=== PATIENT | female | born 1960 | race Caucasian/White ===

== ENCOUNTER → 2019-12-02 08:20 | Outpatient (BNVA) | payer MEDICAID, SELFPAY | PROVIDERS: Family Provider Family Medicine; PCP Family Medicine; Referring Provider Registered Nurse; Visit Provider Specialist | DX: M25.512 Pain in left shoulder (principal); M25.522 Pain in left elbow | CPT/HCPCS: 73030; 73080 ==

== ENCOUNTER → 2020-01-17 14:10 | Outpatient (BNVA) | payer MEDICAID, SELFPAY | PROVIDERS: Family Provider Family Medicine; PCP Registered Nurse; Visit Provider Nurse Practitioner Family | DX: I50.9 Heart failure, unspecified (principal); R01.1 Cardiac murmur, unspecified | CPT/HCPCS: 80048; 83880 ==

== ENCOUNTER 2020-01-18 09:26 | Emergency (ER) | payer MEDICAID, SELFPAY ==
[2020-01-18 09:28] VITALS: BP 122/64; PULSE 78; RESP 16; TEMP 36.5; O2SAT 95; BMI 38.4
--- NOTE | 2020-01-18 09:44 | CTR_ITS ---
PROCEDURE INFORMATION: Exam: CT Abdomen And Pelvis With Contrast Exam date and time: 01/18/2020 10:08 AM Age: 59 years old Clinical indication: Prior surgery; Surgery date: 6+ months; Surgery type: Breast left; Patient HX: Bloating post op colonscopy. HX of cervical, cervical, uterine cancer; Additional info: Bloating post colonoscopy TECHNIQUE: Imaging protocol: Computed tomography of the abdomen and pelvis with intravenous contrast. Total DLP: 1326.91 mGy-cm Radiation optimization: All CT scans at this facility use at least one of these dose optimization techniques: automated exposure control; mA and/or kV adjustment per patient size (includes targeted exams where dose is matched to clinical indication); or iterative reconstruction. Contrast material: OMNIPAQUE; Contrast volume: 95 ml; Contrast route: IV; COMPARISON: CT abdomen pelvis w con* [id number] 07/21/2019 5:15 PM FINDINGS: Lungs: Interstitial prominence and trace dependent airspace disease. Liver: Multiple hepatic cysts, the largest measuring 2.4 cm. Gallbladder and bile ducts: No cholelithiasis or biliary ductal dilatation. Pancreas: No pancreatic mass or ductal dilatation. Spleen: No splenomegaly. Adrenals: Unremarkable adrenals. Kidneys and ureters: 7 mm left renal cyst. 1 mm nonobstructing left renal calculus. Stomach and bowel: Mild wall thickening in the nondistended rectosigmoid and right colon. Prominent stool and diverticula, without pericolonic inflammation. Wall thickening in the nondistended stomach. No significant small bowel dilatation. Appendix: No acute appendicitis. Intraperitoneal space: No significant free fluid. Vasculature: Normal caliber of the abdominal aorta. Vascular calcification. Lymph nodes: No pathologically enlarged lymph nodes. Bladder: Unremarkable as visualized. Reproductive: Punctate left adnexal calcification. Bones/joints: Transitional vertebra at the lumbosacral junction. Marginal osteophytes. Soft tissues: Soft tissue calcification about the proximal right femur. CT/CT abdomen pelvis w con* [id number] IMPRESSION: 1. Mild wall thickening in the nondistended rectosigmoid and right colon. 2. Prominent stool and diverticula, without pericolonic inflammation. 3. Wall thickening in the nondistended stomach. 4. Additional findings as described above. Radiation Dose CTDIVOL = (mGy): DLP = 1326.91 (mGy-cm)
--- NOTE | 2020-01-18 09:44 | ECG_ITS ---
Measurements Intervals [place] Rate: 80 P: 39 HI: 203 QRS: 42 QRSD: 100 T: 16 QT: 399 QTc: 461 SINUS RHYTHM MODERATE T-WAVE ABNORMALITY, CONSIDER ANTEROLATERAL ISCHEMIA Compared to ECG 03/31/2019 10:59:16 No significant changes Electronically Signed On 01-18-2020 13:20:31 [employer]OW REPAIRER [employer] by Jennifer Jaeger M.D. [email or web address]
--- NOTE | 2020-01-18 09:45 | ED_ITS ---
HPI - Chest Pain General: Chief Complaint: Chest Pain Stated Complaint: CP Time Seen by Provider: 01/18/20 09:36 History of Present Illness: HPI narrative: Patient complains about pain in her left upper chest hurts with palpation range of motion movement has a cardiac history was seen yesterday by [facility] patient denies any shortness of breath presently did take nitro with relief yesterday patient also complains about abdominal swelling MD complaint: chest discomfort Pertinent past history: coronary artery disease Onset (ago): day(s) Timing of current episode: episodic Prior episodes: Yes Pain location: left chest Pain radiation: none Severity: mild Quality: aching Relieving factors: nothing Exacerbating factors: movement Associated symptoms: Deny abdominal pain, dyspnea, fever(s) or palpitations Review of Systems Const: Denies: fever, chills or body aches Eyes: Denies: change in vision or blurry vision ENMT: Denies: throat pain or nasal congestion Card: Reports: other (Chest pain left upper chest area); Denies: palpitations Resp: Denies: shortness of breath GI: Reports: bloating; Denies: abdominal pain Musc: Denies: extremity pain Skin/Breast: Denies: rash Neuro: Denies: headache Psych: Denies: anxiety or depression Derrek/Lymph: Denies: easy bruising PFSH ED PFSH: Social History Smoking and tobacco status: current every day smoker cigarettes Packs smoked per day: 0.5 Alcohol intake: former Physical Exam Const: COMMON NORMALS: no apparent distress, average body habitus and oriented x3 HENMT: COMMON NORMALS: normocephalic HEAD & SCALP: normal to inspection and normocephalic FACE & SINUS: normal facial exam Eye: COMMON NORMALS: conjunctivae normal GENERAL EYE: normal appearance of both eyes CONJUNCTIVA: Yes conjunctivae normal Neck/C-Spine: COMMON NORMALS: no JVD Chest: COMMONS NORMALS: inspection of chest normal Resp: COMMON NORMALS: normal respiratory effort and clear to auscultation bilaterally AUSCULTATION: clear to auscultation bilaterally Cardio: COMMON NORMALS: no JVD, regular rate and regular rhythm RATE: regular rate RHYTHM: regular rhythm PERIPHERAL PULSES: other (Tenderness to the left upper chest with palpation and with range of motion the shoulder) GI: COMMON NORMALS: normal to inspection, nondistended, normoactive bowel sounds Extremity: COMMON NORMALS: normal to inspection and full ROM Neuro: COMMON NORMALS: oriented x3 Course Vital Signs: Vital signs: Vital Signs Temperature 97.7 F 01/18/20 09:28 Pulse Rate 80 01/18/20 12:07 Respiratory Rate 15 01/18/20 12:07 Blood Pressure 136/85 01/18/20 12:07 Pulse Oximetry 93 01/18/20 12:07 MDM - Chest Pain MDM Narrative: Medical decision making narrative: Discussed case with Dr. Lobato Heart score is 3 Lab Data: Labs: Lab Results 01/18/20 01/18/20 01/18/20 Range/Units 09:50 09:50 09:50 WBC 5.1 (4.0-10.0) 10^3/ uL RBC 4.50 (4.1-5.3) 10^6/u L Hgb 13.2 (11.5-15.3) g/dL Hct 40.9 (37.0-47.0) % MCV 90.9 (81-99) fL MCH 29.3 (28.0-34.0) pg MCHC 32.3 (30.0-36.0) g/dL RDW 14.6 (12.1-15.1) % Plt Count 208 (130-400) 10^3/c mm MPV 9.9 (7.4-10.4) fL Neut % (Auto) 63.3 % Lymph % (Auto) 27.5 % [place] % (Auto) 7.2 % Eos % (Auto) 1.0 % Baso % (Auto) 0.8 % Neut # (Auto) 3.2 (1.8-7.7) 10^3/u L Lymph # (Auto) 1.4 (0.8-4.8) 10^3/u L [place] # (Auto) 0.4 (0.2-0.9) 10^3/u L Eos # (Auto) 0.1 (0.0-0.8) 10^3/u L Baso # (Auto) 0.0 (0.0-0.1) 10^3/u L Nucleated RBC % (a uto) 0 % Nucleated RBCs # 0.0 /100WBC Sodium 140 (136-145) mmol/L Potassium 3.6 (3.5-5.1) mmol/L Chloride 102 (98-107) mmol/L Carbon Dioxide 27 (22-29) mmol/L Anion Gap 14.6 (5-19) BUN 5 L (6-20) mg/dL Creatinine 0.6 (0.5-0.9) mg/dL GFR Calculation 103.0 (90-130) mL/min Glucose 116 H (65-115) mg/dL Calcium 9.6 (8.5-10.5) mg/dL Total Bilirubin 0.5 (0.15-1.2) mg/dL AST 18 (0-32) U/L ALT 16 (0-33) U/L Alkaline Phosphata se 122 H (35-105) IU/L Troponin T Baselin e 6 (0-10) ng/mL NT-Pro-B Natriuret Pep 158 H (0-125) pg/mL Total Protein 6.9 (6.6-8.7) g/dL Albumin 3.8 (3.5-5.2) g/dL Globulin 3.1 (1.3-4.6) g/dL EKG Data^: EKG 1: EKG interpretation date: 01/18/20 EKG interpretation time: 09:45 Interpretation: NSR, T wave changes [id number] Discharge Plan Discharge Patient Disposition: Home, Self-Care Clinical Impression: Atypical chest pain, Costochondritis Condition: Stable Prescriptions: New hydrocodone-acetaminophen 5-325 mg tablet 1 tab PO Q6H PRN (Reason: pain) Qty: 10 RF: 0 No Action anastrozole [Arimidex] 1 mg tablet 1 mg PO QDAY RF: 0 (DME) Compact Compressor Nebulizer Misc See Rx Instructions .ROUTE .MEDSUPPLY Qty: 1 RF: 0 albuterol sulfate 90 mcg/actuation aerosol powdr breath activated 1 inh INHALATION ONCE RF: 0 folic acid 400 mcg tablet 0.4 mg PO QDAY RF: 0 ondansetron HCl [Zofran] 4 mg tablet 4 mg PO Q6H RF: 0 sodium chloride [[place] Nasal] 0.65 % aerosol,spray 1 spray INTRANASAL ONCE RF: 0 citalopram [Celexa] 40 mg tablet 40 mg PO QDAY RF: 0 atorvastatin [Lipitor] 80 mg tablet 80 mg PO QDAY RF: 0 verapamil [Verelan] 120 mg capsule,ext rel. pellets 24 hr 120 mg PO QAM RF: 0 furosemide [Lasix] 20 mg tablet 10 mg PO QAM RF: 0 levetiracetam [Keppra] 500 mg tablet 500 mg PO BID RF: 0 amitriptyline 50 mg tablet 50 mg PO QDAY RF: 0 loratadine [Claritin Liqui-Gel] 10 mg capsule 10 mg PO QDAY RF: 0 potassium chloride [Klor-Con M20] 20 mEq tablet,ER particles/crystals 20 meq PO QDAY RF: 0 trazodone 100 mg tablet 100 mg PO QDAY RF: 0 aspirin 81 mg tablet,delayed release (DR/EC) 81 mg PO QDAY RF: 0 gabapentin 300 mg capsule 400 mg PO TID RF: 0 promethazine 25 mg tablet 25 mg PO Q6H PRNRF: 0 omeprazole 20 mg capsule,delayed release(DR/EC) 20 mg PO BID RF: 0 isosorbide mononitrate 30 mg tablet extended release 24 hr 30 mg PO BID RF: 0 cholecalciferol (vitamin D3) 1,250 mcg (50,000 unit) capsule 50,000 unit PO .monthly RF: 0 furosemide 40 mg tablet 40 mg PO DAILY Qty: 30 RF: 2 potassium chloride [Klor-Con M20] 20 mEq tablet,ER particles/crystals 20 meq PO BID Qty: 30 RF: 1 Discharge Orders: Discharge Order (Routine); Ordered 01/18/20 Ordered By: Kory Stein Referrals: Farhana Anand DO [Family Provider] - Sravani Paul [Primary Care Provider] - Discharge Diet: Usual diet Discharge Activity: Increase activity as tolerated Patient Instructions: Constipation (ED), Costochondritis (ED) Activity Restrictions/Additional Instructions: Follow-up with medical provider as directed. Take medications as prescribed. Return to the ER or your medical provider if condition worsens. Please read and understand discharge instructions. If any questions ask please. Increase laxative and fiber in the diet drink plenty fluids get plenty of exercise. Discharge Date/Time: 01/18/20 12:07 Coding Level of Care Code ED Communications Equipment Supervisor for Yari Purdy
[2020-01-18 09:57] LABS: Basophils % 0.8 %; Eosinophils # 0.1 10^3/uL (0.0-0.8); Hematocrit 40.9 % (37.0-47.0); Hemoglobin 13.2 g/dL (11.5-15.3); Lymphocytes # 1.4 10^3/uL (0.8-4.8); Lymphocytes % 27.5 %; Mean Corpuscular HGB Conc 32.3 g/dL (30.0-36.0); Mean Corpuscular Hemoglobin 29.3 pg (28.0-34.0); Mean Corpuscular Volume 90.9 fL (81-99); Mean Platelet Volume 9.9 fL (7.4-10.4); Monocytes # 0.4 10^3/uL (0.2-0.9); Monocytes % 7.2 %; Neutrophils # 3.2 10^3/uL (1.8-7.7); Neutrophils % 63.3 %; Nucleated Red Blood Cells % 0 %; Platelet Count 208 10^3/cmm (130-400); Red Cell Distribution Width 14.6 % (12.1-15.1); White Blood Count 5.1 10^3/uL (4.0-10.0)
[2020-01-18 10:15] LABS: Troponin(5th) Baseline 6 ng/mL (0-10)
--- NOTE | 2020-01-18 10:20 | PC.NURSE ---
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
--- NOTE | 2020-01-18 10:22 | PC.NURSE ---
PHYSICAL ASSESSMENT Chief Complaint: Chest Pain, Cough, Fever GENERAL / NEURO / PSYCH: Alert. Oriented x 4 ARIANNE COMA SCORE: 15- HEENT: No facial asymmetry noted. Mucous membranes are pink. RESPIRATORY: Not in respiratory distress. Chest tender, worse with palpation and coughing. Breath sounds in normal limits. CVS: Sinus Rhythm Capillary refill less than 2 seconds. Pulses within normal limits. GI / : Abdomen soft and nontender and normal bowel sounds. SKIN: Skin intact. Skin is warm and dry. Normal skin turgor. -
[2020-01-18 10:24] LABS: Alanine Aminotransferase 16 U/L (0-33); Albumin Level 3.8 g/dL (3.5-5.2); Alkaline Phosphatase 122 IU/L (35-105); Anion Gap 14.6 (5-19); Aspartate Amino Transferase 18 U/L (0-32); Blood Urea Nitrogen 5 mg/dL (6-20); Calcium 9.6 mg/dL (8.5-10.5); Carbon Dioxide 27 mmol/L (22-29); Chloride 102 mmol/L (98-107); Globulin 3.1 g/dL (1.3-4.6); Glucose 116 mg/dL (65-115); NT Pro B Type Natriuretic Pept 158 pg/mL (0-125); Potassium 3.6 mmol/L (3.5-5.1); Sodium 140 mmol/L (136-145); Total Bilirubin 0.5 mg/dL (0.15-1.2); Total Protein 6.9 g/dL (6.6-8.7)
--- NOTE | 2020-01-18 10:56 | XR_ITS ---
WS: [id number] XR chest 1V portable [id number] REASON FOR EXAM: chest pain palpable FINDINGS: Comparisons were made to March 31, 2019. The heart and mediastinal interfaces are normal. Arteriosclerotic changes in the arch of the aorta ar e noted. The lung drummond are well-aerated there is no active processes seen. The hilum and apices are normal. XR/XR chest 1V portable [id number] IMPRESSION: No evidence of active cardiopulmonary disease. Arteriosclerotic changes in the arch of the aorta.
[2020-01-18] MEDS: iohexol 300 mg/mL 100 mL Btl IV (11:00)
[2020-01-18] MEDS: HYDROcodone-acetaminophen 5-325 mg Tablet 1 TAB PO (11:12)
--- NOTE | 2020-01-18 11:55 | PC.NURSE ---
Patient resting at this time. No needs.
[2020-01-18 12:07] VITALS: BP 136/85; PULSE 80; RESP 15; O2SAT 93
== END 2020-01-18 12:07 | disposition home or self-care (01) ==
PROVIDERS: Emergency Provider Nurse Practitioner Family; Family Provider Family Medicine; PCP Registered Nurse
DX: R07.89 Other chest pain (principal); M94.0 Chondrocostal junction syndrome [Tietze]; I25.10 Atherosclerotic heart disease of native coronary artery without angina pectoris; F17.210 Nicotine dependence, cigarettes, uncomplicated
CPT/HCPCS: 36415; 71045; 74177; 80053; 83880; 84484; 85025; 93005; 99281; 99284; Q9967

== ENCOUNTER 2020-01-28 09:12 | Outpatient (CLI) | payer MEDICAID, SELFPAY ==
--- NOTE | 2020-01-28 09:30 | USCV_ITS ---
[facility] Age: 59 Gender: F : 1960 Exam Date: 01/28/2020 09:33 Ordering Phys: Aliza Chang Technologist: Shandra Lynn [place] [facility] [place]: CHEST PAIN BP: / HR: 73 Rhythm: Sinus Technical Quality: Suboptimal MEASUREMENTS (Male / Female) Normal Values 2D ECHO LV Diastolic Diameter PLAX 4.6 cm 4.2 - 5.9 / 3.9 - 5.3 cm LV Systolic Diameter PLAX 3.4 cm LV Chamber Size 4.2 cm IVS Diastolic Thickness 0.9 cm 0.6 - 1.0 / 0.6 - 0.9 cm IVS Systolic Thickness 1.5 cm LVPW Diastolic Thickness 1.6 cm 0.6 - 1.0 / 0.6 - 0.9 cm LVPW Systolic Thickness 1.3 cm RV Chamber Size 3.0 cm LVOT Diameter 2.0 cm LV Ejection Fraction 2D Teich 51.9 % LV Ejection Fraction MOD 2C 71.4 % LV Ejection Fraction 2C AL 74.3 % LA Diameter 3.6 cm LA Width 2.7 cm LA Height 3.4 cm RA Width 3.2 cm RA Height 3.9 cm Aorta at Sinotubular Diameter 3.4 cm M-MODE LV Diastolic Diameter MM 6.0 cm 4.2 - 5.9 / 3.9 - 5.3 cm LV Systolic Diameter MM 4.7 cm LV Ejection Fraction MM Teich 43.8 % IVS Diastolic Thickness MM 0.8 cm 0.6 - 1.0 / 0.6 - 0.9 cm IVS Systolic Thickness MM 1.3 cm LVPW Diastolic Thickness MM 1.3 cm 0.6 - 1.0 / 0.6 - 0.9 cm LVPW Systolic Thickness MM 1.6 cm RV Diastolic Diameter MM 1.7 cm Aortic Annulus Diameter 3.5 cm LA Ao Ratio MM 1.0 MV E Point Septal Separation 1.3 cm DOPPLER AV Peak Velocity 158.0 cm/s LVOT Peak Velocity 109.0 cm/s AV Area Cont Eq vti 2.2 cm squared AV Area Cont Eq pk 2.2 cm squared MV Area PHT 5.0 cm squared Mitral E to A Ratio 0.7 MV E' Velocity 11.0 cm/s Mitral E to MV E' Ratio 8.1 Mitral E to LV E' Lateral Ratio 8.2 Mitral E to LV E' Septal Ratio 8.0 TR Peak Velocity 285.9 cm/s TR Peak Gradient 32.7 mmHg TR Mean Velocity 215.4 cm/s TR Mean Gradient 20.6 mmHg TR Velocity Time Integral 74.5 cm TV Peak E Velocity 71.0 cm/s Right Atrial Pressure 3.0 mmHg Pulmonary Artery Systolic Pressu 35.7 mmHg PV Peak Velocity 91.0 cm/s RV Acceleration Time 0.1 s RV Ejection Time 0.4 s RV AcT/ET 0.4 FINDINGS Left Ventricle Normal left ventricular size, systolic function and wall thickness, with no regional wall motion abnormalities. Left ventricular cavity not well visualized. Grade I/IV diastolic dysfunction (abnormal relaxation filling pattern), normal to mildly elevated filling pressures. Left ventricular ejection fraction is estimated at 60 %. Right Ventricle Normal right ventricular size and systolic function. Mild pulmonary hypertension, RVSP 35.7 mmHg. Right Atrium The right atrium is normal in size. Left Atrium The left atrium is normal in size. Mitral Valve Mitral valve not well visualized. Structurally normal mitral valve. Trace mitral valve regurgitation. Aortic Valve Aortic valve not well visualized. Structurally normal trileaflet aortic valve. No aortic valve stenosis. [id number] aortic valve regurgitation. Tricuspid Valve Tricuspid valve not well visualized. Mild tricuspid valve regurgitation. Pulmonic Valve Pulmonic valve not well visualized. Pericardium Normal pericardium without effusion. Aorta Normal ascending aorta dimension. CONCLUSIONS Normal left ventricular size, systolic function and wall thickness, with no regional wall motion abnormalities. Left ventricular cavity not well visualized. Grade I/IV diastolic dysfunction (abnormal relaxation filling pattern), normal to mildly elevated filling pressures. Left ventricular ejection fraction is estimated at 60 %. Normal right ventricular size and systolic function. Mild pulmonary hypertension, RVSP 35.7 mmHg. Mitral valve not well visualized. Structurally normal mitral valve. Trace mitral valve regurgitation. Aortic valve not well visualized. Structurally normal trileaflet aortic valve. No aortic valve stenosis. [id number] aortic valve regurgitation. There are no prior echocardiogram studies to compare. Dr. Fred Baldwin MD (Electronically Signed) Final Date: 28 January 2020 12:38 S
== END 2020-01-28 09:13 | disposition home or self-care (01) ==
LOC: US 09:12
PROVIDERS: Family Provider Registered Nurse; PCP Registered Nurse; Visit Provider Nurse Practitioner Family
DX: I08.3 Combined rheumatic disorders of mitral, aortic and tricuspid valves (principal); I50.9 Heart failure, unspecified; R01.1 Cardiac murmur, unspecified
CPT/HCPCS: 93306

== ENCOUNTER 2020-02-07 14:58 | Emergency (ER) | payer MEDICAID, SELFPAY ==
[2020-02-07 15:09] VITALS: BP 103/74; PULSE 100; RESP 18; TEMP 37; BMI 37.1
--- NOTE | 2020-02-07 15:16 | ED_ITS ---
Entered by Madeline Mcdonald, acting as scribe for Cesilia Cid MD Feb 07, 2020 14:58 HPI - Chest Pain General: Chief Complaint: Chest Pain Stated Complaint: Abd bloating/CHEST PAIN Time Seen by Provider: 02/07/20 15:10 Source: patient Mode of arrival: ambulatory Limitations: no limitations History of Present Illness: HPI narrative: 59 yo Female presents to ED with complaint of chest pain and abdominal bloating that has been going on for 3 and a half weeks. Pt states that her appointment at [facility] got messed up and she was told to come in to the ER to be seen. Pt states that her Lasix has been increased but she has not had any relief. complaint: chest pain Onset (ago): week(s) Timing of current episode: constant and still present Prior episodes: Yes Pain location: substernal Pain radiation: none Pain scale (0-10): 9 Relieving factors: nothing Exacerbating factors: other (coughing) Associated symptoms: Deny abdominal pain, dyspnea, fever(s), nausea or vomiting Treatment prior to arrival: none Review of Systems General: Reports: 10 or more systems reviewed and unremarkable except in HPI and below Const: Denies: fever or chills Eyes: Denies: change in vision ENMT: Denies: throat pain Card: Reports: chest pain Resp: Denies: shortness of breath GI: Reports: bloating; Denies: abdominal pain, nausea, vomiting or change in bowel habits : Denies: difficulty urinating Musc: Denies: muscle weakness Skin/Breast: Denies: rash Neuro: Denies: headache Psych: Denies: hopelessness or suicidal ideation Endo: Denies: excessive urination Derrek/Lymph: Denies: easy bruising or easy bleeding All/Imm: Denies: hives PFSH ED PFSH: Medical History COPD (chronic obstructive pulmonary disease) CVA (cerebrovascular accident) received TPA at [facility], 2018 History of drug abuse used methamphetamine, and alcohol Seizure disorder Sleep apnea Surgical History H/O tubal ligation S/P cataract surgery S/P left mastectomy Family History Grandfather CAD (coronary artery disease) Cancer Clotting disorder Family history of premature coronary artery disease Hyperlipidemia Hypertension Lung disease Grandmother CAD (coronary artery disease) Cancer Diabetes Family history of premature coronary artery disease Hyperlipidemia Hypertension Lung disease Family/Other CAD (coronary artery disease) Clotting disorder Diabetes Family history of premature coronary artery disease Hyperlipidemia Hypertension Lung disease Stroke Father CAD (coronary artery disease) Cancer Family history of premature coronary artery disease Mother CAD (coronary artery disease) Cancer Family history of premature coronary artery disease Lung disease Brother CAD (coronary artery disease) Cancer Denies family history of Dementia Psychiatric illness Chronic kidney disease (CKD) Suicide Anesthesia complication Bleeding disorder Social History Smoking and tobacco status: current every day smoker cigarettes Packs smoked per day: 0.5 Alcohol intake: former Physical Exam Const: COMMON NORMALS: no apparent distress, oriented x3, alert and well nourished HENMT: COMMON NORMALS: normocephalic and external nose normal HEAD & SCALP: normocephalic NOSE: external nose normal MOUTH: no trismus Eye: COMMON NORMALS: EOMs intact bilaterally and conjunctivae normal CONJUNCTIVA: Yes conjunctivae normal Neck/C-Spine: COMMON NORMALS: full ROM, no lymphadenopathy and supple CERVICAL SPINE: Yes cervical ROM normal Lymph: LYMPHATIC: no lymphadenopathy noted Resp: COMMON NORMALS: normal respiratory effort, no retractions, no use of accessory muscles and clear to auscultation bilaterally EFFORT & INSPECTION: Yes able to speak in complete sentences AUSCULTATION: clear to auscultation bilaterally Cardio: COMMON NORMALS: regular rate and regular rhythm RATE: regular rate RHYTHM: regular rhythm GI: COMMON NORMALS: soft to palpation, non-tender and no masses INSPECTION: Yes normal to inspection AUSCULTATION: Yes normoactive bowel sounds PALPATION: Yes soft, No guarding and No rigid Back/Pelvis: OTHER: Normal range of motion Extremity: GENERAL: Yes normal exam except as noted Neuro: COMMON NORMALS: oriented x3 and CN's II-XII intact bilaterally SENSORIUM/ORIENTATION: Yes alert SPEECH: speech normal Psych: COMMON NORMALS: mental status grossly normal Skin: COMMON NORMALS: no rashes or lesions noted GENERAL SKIN EXAM: no rashes or lesions noted Course Vital Signs: Vital signs: Vital Signs Temperature 98.6 F 02/07/20 15:09 Pulse Rate 100 03/23/20 15:09 Respiratory Rate 18 02/07/20 15:09 Blood Pressure 103/74 02/07/20 15:09 MDM - Chest Pain MDM Narrative: Medical decision making narrative: Discussed with nurse practitioner Ganga at the cardiology clinic by phone. She did speak with the patient on the phone and from what this patient told her she figured she would need lab and an assessment to make sure she was not fluid overloaded. BMP is improved from earlier this month patient has no respiratory distress lung exam is normal. Labs are within normal limits. She has had this chest pain and abdominal bloating for almost 4 weeks now and it is unchanged. No emergent medical condition found today that warrants further investigation in the hospital or ER at is time. Lab Data: Labs: Lab Results 02/07/20 02/07/20 02/07/20 Range/Units 15:34 15:34 15:34 WBC 8.6 (4.0-10.0) 10^3/ uL RBC 4.73 (4.1-5.3) 10^6/u L Hgb 14.2 (11.5-15.3) g/dL Hct 43.9 (37.0-47.0) % MCV 92.8 (81-99) fL MCH 30.0 (28.0-34.0) pg MCHC 32.3 (30.0-36.0) g/dL RDW 14.3 (12.1-15.1) % Plt Count 211 (130-400) 10^3/c mm MPV 10.2 (7.4-10.4) fL Neut % (Auto) 62.1 % Lymph % (Auto) 28.5 % Hettinger % (Auto) 7.8 % Eos % (Auto) 0.6 % Baso % (Auto) 0.8 % Neut # (Auto) 5.3 (1.8-7.7) 10^3/u L Lymph # (Auto) 2.5 (0.8-4.8) 10^3/u L [place] # (Auto) 0.7 (0.2-0.9) 10^3/u L Eos # (Auto) 0.1 (0.0-0.8) 10^3/u L Baso # (Auto) 0.1 (0.0-0.1) 10^3/u L Nucleated RBC % (a uto) 0 % Nucleated RBCs # 0.0 /100WBC Sodium 139 (136-145) mmol/L Potassium 3.6 (3.5-5.1) mmol/L Chloride 99 (98-107) mmol/L Carbon Dioxide 27 (22-29) mmol/L Anion Gap 16.6 (5-19) BUN 8 (6-20) mg/dL Creatinine 0.8 (0.5-0.9) mg/dL GFR Calculation 73.9 L (90-130) mL/min Glucose 106 (65-115) mg/dL Calculated Osmolal ity 284 L (285-295) mOsm/k g Calcium 9.6 (8.5-10.5) mg/dL Total Bilirubin 0.4 (0.15-1.2) mg/dL AST 17 (0-32) U/L ALT 17 (0-33) U/L Alkaline Phosphata se 124 H (35-105) IU/L Troponin T Baselin e 6 (0-10) ng/mL NT-Pro-B Natriuret Pep 27 (0-125) pg/mL Total Protein 7.0 (6.6-8.7) g/dL Albumin 3.9 (3.5-5.2) g/dL Globulin 3.1 (1.3-4.6) g/dL Lipase 30 (13-60) U/L Imaging Data^: CXR: Radiologist's impression: [place] [address] XRay Report Signed Patient: Coby Pierce MUnit #: [id number] : 2At#:[id number] Age/Sex: 59 / FADM Date: 02/07/20 Loc: ERRoom/Bed: Attending Dr: Ordering Provider/Ordering MD: Cesilia Cid MD Date of Service: 02/07/20 Procedure(s): XR chest 1V portable [id number] Accession Number(s): [id number] Report Number: [id number] WS: [id number] CHEST XRAY TECHNIQUE: Portable chest. CLINICAL INFORMATION: cp, abd pbloating COMPARISON: January 18, 2020 FINDINGS: Heart: Normal cardiac silhouette. Aortic calcification. Lungs: Lungs are clear. No consolidation or pleural effusion. Bones: Hypertrophic changes thoracic spine. XR/XR chest 1V portable [id number] IMPRESSION: No acute chest findings Dictated By:Inder Calderon MD Signed By:Inder Calderon MDSigned Date/Time:02/07/20 1607 DD/ 1554 EKG Data^: EKG 1: Attestation: I personally reviewed and interpreted this EKG as follows: EKG interpretation date: 02/07/20 EKG interpretation time: 15:32 Prior EKG tracings: not available for review Interpretation: Sinus rhythm rate 89 with artifact on the EKG nonspecific ST changes no acute ST elevation that would be consistent with a ST elevated [place]. Discharge Plan Discharge Patient Disposition: Home, Self-Care Clinical Impression: Chest pain Qualifiers: Chest pain type: unspecified Qualified Code(s): R07.9 - Chest pain, unspecified Condition: Stable Prescriptions: No Action anastrozole [Arimidex] 1 mg tablet 1 mg PO QDAY RF: 0 (DME) Compact Compressor Nebulizer Misc See Rx Instructions .ROUTE .MEDSUPPLY Qty: 1 RF: 0 albuterol sulfate 90 mcg/actuation aerosol powdr breath activated 1 inh INHALATION ONCE RF: 0 folic acid 400 mcg tablet 0.4 mg PO QDAY RF: 0 ondansetron HCl [Zofran] 4 mg tablet 4 mg PO Q6H RF: 0 sodium chloride [[place] Nasal] 0.65 % aerosol,spray 1 spray INTRANASAL ONCE RF: 0 citalopram [Celexa] 40 mg tablet 40 mg PO QDAY RF: 0 atorvastatin [Lipitor] 80 mg tablet 80 mg PO QDAY RF: 0 verapamil [Verelan] 120 mg capsule,ext rel. pellets 24 hr 120 mg PO QAM RF: 0 levetiracetam [Keppra] 500 mg tablet 500 mg PO BID RF: 0 amitriptyline 50 mg tablet 50 mg PO QDAY RF: 0 loratadine [Claritin Liqui-Gel] 10 mg capsule 10 mg PO QDAY RF: 0 trazodone 100 mg tablet 100 mg PO QDAY RF: 0 aspirin 81 mg tablet,delayed release (DR/EC) 81 mg PO QDAY RF: 0 gabapentin 300 mg capsule 700 mg PO TID RF: 0 promethazine 25 mg tablet 25 mg PO Q6H PRN (Reason: Nausea And Vomiting) RF: 0 omeprazole 20 mg capsule,delayed release(DR/EC) 20 mg PO BID RF: 0 cholecalciferol (vitamin D3) 1,250 mcg (50,000 unit) capsule 50,000 unit PO .monthly RF: 0 furosemide 40 mg tablet 40 mg PO DAILY Qty: 30 RF: 2 nitroglycerin 0.4 mg tablet, sublingual 0.4 mg SUBLINGUAL Q5M PRN (Reason: chest pain) Qty: 30 RF: 1 isosorbide mononitrate 30 mg tablet extended release 24 hr 30 mg PO BID Qty: 60 RF: 3 Calcium 500 500 mg calcium (1,250 mg) Tablet 500 mg PO DAILY RF: 0 Klor-Con M20 20 mEq tablet,ER particles/crystals 20 meq PO TID RF: 0 hydrocodone-acetaminophen 5-325 mg tablet 1 tab PO Q6H PRN (Reason: pain) Qty: 10 RF: 0 Referrals: Sravani Paul [Primary Care Provider] - Patient Instructions: Chest Pain (ED) Activity Restrictions/Additional Instructions: Follow-up with your primary care physicians as previously instructed. Coding Level of Care Code ED Senior Physical Therapist for Chg Fwd Exam Comprehensive The documentation recorded by the Harry rose Carmen, accurately reflects the service I personally performed and the decisions made by Jose Roberto chin Megan, MD Feb 07, 2020 14:58
--- NOTE | 2020-02-07 15:26 | XR_ITS ---
WS: [id number] CHEST XRAY TECHNIQUE: Portable chest. CLINICAL INFORMATION: cp, abd pbloating COMPARISON: January 18, 2020 FINDINGS: Heart: Normal cardiac silhouette. Aortic calcification. Lungs: Lungs are clear. No consolidation or pleural effusion. Bones: Hypertrophic changes thoracic spine. XR/XR chest 1V portable [id number] IMPRESSION: No acute chest findings
--- NOTE | 2020-02-07 15:26 | ECG_ITS ---
Measurements Intervals [place] Rate: 89 P: 47 GA: 190 QRS: 24 QRSD: 102 T: 50 QT: 388 QTc: 472 SINUS RHYTHM POSSIBLE LEFT ATRIAL ENLARGEMENT [-0.1mV P WAVE IN V1/V2] MODERATE T-WAVE ABNORMALITY, CONSIDER ANTEROLATERAL ISCHEMIA [-0.1+ mV T WAVE IN V3-V6]Compared to ECG 01/18/2020 09:33:45 No significant changes Electronically Signed On 02-07-2020 19:25:43 CDT by Aicha Saavedra M.D. [email or web address]
[2020-02-07 15:40] LABS: Basophils # 0.1 10^3/uL (0.0-0.1); Basophils % 0.8 %; Eosinophils # 0.1 10^3/uL (0.0-0.8); Eosinophils % 0.6 %; Hematocrit 43.9 % (37.0-47.0); Hemoglobin 14.2 g/dL (11.5-15.3); Lymphocytes # 2.5 10^3/uL (0.8-4.8); Lymphocytes % 28.5 %; Mean Corpuscular HGB Conc 32.3 g/dL (30.0-36.0); Mean Corpuscular Volume 92.8 fL (81-99); Mean Platelet Volume 10.2 fL (7.4-10.4); Monocytes # 0.7 10^3/uL (0.2-0.9); Monocytes % 7.8 %; Neutrophils # 5.3 10^3/uL (1.8-7.7); Neutrophils % 62.1 %; Nucleated Red Blood Cells % 0 %; Platelet Count 211 10^3/cmm (130-400); Red Blood Count 4.73 10^6/uL (4.1-5.3); Red Cell Distribution Width 14.3 % (12.1-15.1); White Blood Count 8.6 10^3/uL (4.0-10.0)
[2020-02-07 16:05] LABS: Troponin(5th) Baseline 6 ng/mL (0-10)
[2020-02-07 16:12] LABS: Alanine Aminotransferase 17 U/L (0-33); Albumin Level 3.9 g/dL (3.5-5.2); Alkaline Phosphatase 124 IU/L (35-105); Anion Gap 16.6 (5-19); Aspartate Amino Transferase 17 U/L (0-32); Blood Urea Nitrogen 8 mg/dL (6-20); Calcium 9.6 mg/dL (8.5-10.5); Carbon Dioxide 27 mmol/L (22-29); Chloride 99 mmol/L (98-107); Globulin 3.1 g/dL (1.3-4.6); Glomerular Filtration Rate 73.9 mL/min (90-130); Glucose 106 mg/dL (65-115); Lipase 30 U/L (13-60); NT Pro B Type Natriuretic Pept 27 pg/mL (0-125); Osmolality Calculated 284 mOsm/kg (285-295); Potassium 3.6 mmol/L (3.5-5.1); Sodium 139 mmol/L (136-145); Total Bilirubin 0.4 mg/dL (0.15-1.2)
[2020-02-07 17:04] VITALS: BP 115/64; PULSE 88; RESP 16; O2SAT 96
== END 2020-02-07 17:05 | disposition home or self-care (01) ==
PROVIDERS: Emergency Provider Emergency Medicine; Family Provider Registered Nurse; PCP Registered Nurse
DX: R07.9 Chest pain, unspecified (principal); J44.9 Chronic obstructive pulmonary disease, unspecified; F17.210 Nicotine dependence, cigarettes, uncomplicated; Z86.73 Personal history of transient ischemic attack (TIA), and cerebral infarction without residual deficits; Z82.49 Family history of ischemic heart disease and other diseases of the circulatory system
CPT/HCPCS: 12345; 36415; 71045; 80053; 83690; 83880; 84484; 85025; 93005; 99281; 99283

== ENCOUNTER 2020-02-24 09:41 | Outpatient (CLI) | payer MEDICAID, SELFPAY ==
--- NOTE | 2020-02-24 10:15 | US_ITS ---
WS: [id number] RIGHT UPPER QUADRANT ULTRASOUND HISTORY: Generalized abdominal pain with nausea and vomiting. COMPARISON: CT abdomen 01/18/2020 Liver: 13.9 cm in length. Normal size liver. Multiple hypoechoic nodules throughout the liver. These were seen on the recent CT and correlated with cysts. The largest near the paras hepatis measures 2.4 x 1.8 x 1.7 cm. Gallbladder: Normally distended gallbladder with no stones or wall thickening. CBD: 0.5 cm Pancreas: Completely obscured by bowel gas. Right kidney: 11.8 cm in length. Normal echogenicity with no mass or hydronephrosis. Aorta and IVC: Unremarkable. No ascites. US/US gall bladder [id number] IMPRESSION: 1. Negative gallbladder. 2. Hepatic cysts which have been previously described also by CT. 3. No biliary dilatation. 4. Pancreas is not visualized.
== END 2020-02-24 09:42 | disposition home or self-care (01) ==
LOC: RADWPI 09:42
PROVIDERS: Family Provider Registered Nurse; PCP Registered Nurse; Visit Provider Internal Medicine
DX: R10.84 Generalized abdominal pain (principal); R11.2 Nausea with vomiting, unspecified; K76.89 Other specified diseases of liver
CPT/HCPCS: 76705

== ENCOUNTER 2020-03-20 09:30 | Day surgery (SDC) | payer MEDICAID, SELFPAY ==
--- NOTE | 2020-03-20 08:59 | W.PM.OPSUD ---
Surgery/Procedure H&P Update DATE OF PROCEDURE: March 20, 2020 DATE H&P PERFORMED: 03/06/20 PLANNED PROCEDURE: Operation Date: 03/20/20 11:10 Proposed Procedures p EGD 16537 R10.13(Not Applicable) - Roderick Daniels MD
[2020-03-20 09:47] VITALS: BP 157/101; PULSE 88; RESP 20; TEMP 36.4; O2SAT 94; BMI 37.3
[2020-03-20] MEDS: sodium chloride 0.9% 1,000 ML 30 ML IV (10:02)
--- NOTE | 2020-03-20 10:13 | ANES.PREANE2 ---
Pre-Anesthetic Assessment Pre-Anesthetic Assessment: Height/Weight: Height 1.57 m Weight 92.533 kg Temp Pulse Resp BP Pulse Ox 97.6 F 88 20 H 157/101 94 03/20/20 09:47 03/20/20 09:47 03/20/20 09:47 03/20/20 09:47 03/20/20 09:47 Preop Diagnosis: ABD pain Proposed Procedure: Operation Date: 03/20/20 11:10 Proposed Procedures p EGD 09153 R10.13(Not Applicable) - Roderick Daniels MD Was Beta Maria Guadalupe taken within 24 hours: Yes Last intake: Intake Last Liquid Date 03/19/20 Last Liquid Time 23:00 Last Solid Date 03/19/20 Last Solid Time 19:00 Last Intake: 23:00 Social: Social History: Tobacco and No alcohol Packs per day: 1 Pack years: 40+ Exam: Pre-Anes Outpt Exam: alert, oriented x 3, clear to auscultation bilaterally and regular rate & rhythm Airway: Submandibular: WNL Cervical ROM: WNL MP: 2 Dentition: False Pulmonary: Pulmonary: Asthma, COPD, Cough and Sleep apnea (CPAP) CV/HEM: CV/HEM: Angina (Stable) (NTG relieved. Seen Dr Peralta less than yr ago ), CAD, CHF, HTN and PVD Comments: stent in right leg [address] Peralta in January and scheduled for stress test. Pt not had stress test : : None reported Hepatic: Hepatic: None reported GI: GI: GERD Metabolic: Metabolic: DM Comments: diet controlled Musc/skel: Musc/skel: Lower Back Pain and OA/DJD Neuropsych: Neuropsych: CVA (Left side weakness 2019), HESS, Seizure (last week ) and Syncope (2 months ago) Anesthetic Plan: ASA status: 3 Anesthesia: MAC Risk of > 500 ml blood loss (7ml/kg in children): No Meds/Allergies Current Medications: Current Medications Generic Name Dose Route Start Last Admin Trade Name Freq PRN Reason Stop Dose Admin Sodium Chloride 1,000 mls @ 30 ml s/hr 03/20/20 09:45 03/20/20 10:02 Sodium Chloride 0.9% IV 30 mls/hr .Q24H AMY Administration PFSH Anesthesia PFSH: Medical History Congestive heart failure grade 1 diastolic dysfunction, LVEF 60% COPD (chronic obstructive pulmonary disease) CVA (cerebrovascular accident) received TPA at [facility], 2018 History of drug abuse used methamphetamine, and alcohol Seizure disorder Sleep apnea Surgical History (Updated 03/06/20 @ 10:12 by Radha Sage LPN) H/O tubal ligation S/P cataract surgery S/P left mastectomy Social History Smoking and tobacco status: current every day smoker cigarettes Packs smoked per day: 0.5 Alcohol intake: former Data Anesthesia Cardiac Studies: No Data to Display
--- NOTE | 2020-03-20 10:28 | ECG_ITS ---
Measurements Intervals [place] Rate: 73 P: 49 AK: 192 QRS: 31 QRSD: 102 T: 46 QT: 415 QTc: 460 SINUS RHYTHM MODERATE T-WAVE ABNORMALITY, CONSIDER ANTERIOR ISCHEMIA [-0.1+ mV T WAVE IN V3/V4] Compared to ECG 02/07/2020 15:32:21 No significant changes Electronically Signed On 03-20-2020 18:24:17 CDT by Anmol Mathias M.D. [email or web address]
--- NOTE | 2020-03-20 11:13 | PC.NURSE ---
EKG PERFORMED PER ANESTHESIA REQUEST. NOTIFIED ANESTHESIOLOGIST WITH RESULTS.
[2020-03-20 11:35] VITALS: BP 103/59; PULSE 75; RESP 16; TEMP 36.1; O2SAT 92
--- NOTE | 2020-03-20 11:40 | ANE.PACU2 ---
 Inpatient post-anesthesia follow up: Airway intact: Yes Vital signs: Temperature 97.0 F Pulse Rate 75 Respiratory Rate 16 Blood Pressure 103/59 Pulse Oximetry 92 Oxygen Delivery Me thod Nasal Cannula Oxygen Flow Rate 2 Fraction of Inspir ed Oxygen Hydration adequate: Yes Nausea and vomiting: No Pain level: 1 Mental status: Baseline
[2020-03-20 11:43] VITALS: BP 103/59; PULSE 79; RESP 16; O2SAT 94
[2020-03-21 11:16] LABS: H. Pylori / CLO Test Negative
== END 2020-03-20 12:00 | disposition home or self-care (01) ==
PROVIDERS: Family Provider Registered Nurse; PCP Registered Nurse; Visit Provider Internal Medicine
PROC: 0DJ08ZZ Inspection of Upper Intestinal Tract, Via Natural or Artificial Opening Endoscopic (ICD-10-PCS; CPT 43235; principal; 2020-03-20 11:05)
DX: R10.13 Epigastric pain (principal); K29.71 Gastritis, unspecified, with bleeding; J44.9 Chronic obstructive pulmonary disease, unspecified; G47.30 Sleep apnea, unspecified; I25.10 Atherosclerotic heart disease of native coronary artery without angina pectoris; I11.0 Hypertensive heart disease with heart failure; I50.9 Heart failure, unspecified; K21.9 Gastro-esophageal reflux disease without esophagitis; E11.9 Type 2 diabetes mellitus without complications; I69.854 Hemiplegia and hemiparesis following other cerebrovascular disease affecting left non-dominant side; M19.90 Unspecified osteoarthritis, unspecified site
CPT/HCPCS: 43239; 12345; 87077; 93005; J2704; J7030

== ENCOUNTER 2020-10-23 16:29 | Outpatient (CLI) | payer MEDICAID, SELFPAY ==
--- NOTE | 2020-10-23 16:41 | XR_ITS ---
WS: [id number] XR chest 2V* [id number] REASON FOR EXAM: R07.9 - Chest pain, unspecified FINDINGS: The chest is unchanged compared to previous examination of 02/07/2020. The heart and mediastinum are within normal limits. No active pulmonary parenchymal or pleural disease is noted. Moderate changes of degenerative spondylosis in the mid and lower thoracic spine. XR/XR chest 2V* [id number] IMPRESSION: No acute chest abnormality.
== END 2020-10-23 16:30 | disposition home or self-care (01) ==
PROVIDERS: PCP Registered Nurse; Visit Provider Internal Medicine Cardiovascular Disease
DX: R07.9 Chest pain, unspecified (principal)
CPT/HCPCS: 71046

== ENCOUNTER 2020-10-31 08:38 | Outpatient (CLI) | payer MEDICAID, SELFPAY ==
--- NOTE | 2020-10-31 10:15 | XR_ITS ---
WS: [id number] KUB, 10/31/2020 Clinical Data: KIDNEY STONE Comparison: KUB, 03/08/2019. Findings: No abnormal intraabdominal masses or calcifications are seen. There is no dilatated small bowel or ev idence of obstruction. No renal or ureteral calculi are seen. There is a large amount of fecal material throughout the colon . XR/XR KUB [id number] Impression: Negative KUB.
== END 2020-10-31 08:39 | disposition home or self-care (01) ==
PROVIDERS: PCP Registered Nurse; Visit Provider Urology
DX: N20.0 Calculus of kidney (principal)
CPT/HCPCS: 74018; 81003; 87086

== ENCOUNTER 2020-11-06 09:02 | Outpatient (CLI) | payer MEDICAID, SELFPAY ==
--- NOTE | 2020-11-06 10:00 | NM_ITS ---
WS: [id number] NUCLEAR MEDICINE HIDA SCAN WITH GALLBLADDER EJECTION FRACTION HISTORY: R10.13 - Epigastric pain COMPARISON: None available. TECHNIQUE: The patient was intravenously injected with 7.7 mCi of TC99m Mebrofenin. Immediate imaging over the right upper quadrant was followed by 5 minute image and additional images for a total of 60 minutes. Normal uptake of radiotracer throughout the liver. Activity identified in the gallbladder at 15 minutes and well distended by 60 minutes. Activity in the proximal small bowel was seen by 60 minutes. Good washout of the radiotracer from the liver by 60 minutes. The patient then drank 8 ounces of Ensure Plus. Ejection fraction at 60 minutes was 54%. Normal GB ej ection fraction is 35-75%. Post fatty meal symptoms: None. NM/NM hepatobiliary w phar* [id number] IMPRESSION: 1. Normal HIDA scan. 2. Normal gallbladder ejection fraction.
== END 2020-11-06 09:03 | disposition home or self-care (01) ==
LOC: NM 09:04
PROVIDERS: PCP Registered Nurse; Visit Provider Surgery
DX: R10.13 Epigastric pain (principal)
CPT/HCPCS: 78227; A9537

== ENCOUNTER 2020-11-13 09:47 | Emergency (ER) | payer MEDICAID, SELFPAY ==
[2020-11-13 10:16] VITALS: BP 110/69; PULSE 78; RESP 18; TEMP 36.6; O2SAT 94; BMI 35.6
--- NOTE | 2020-11-13 10:30 | XRR_ITS ---
PROCEDURE INFORMATION: Exam: XR Right Knee Exam date and time: 11/13/2020 10:34 AM Age: 60 years old Clinical indication: Right; Patient HX: RT knee pain, syncope, poss covid TECHNIQUE: Imaging protocol: XR Right knee. Views: 3 views. COMPARISON: No relevant prior studies available. FINDINGS: Bones/joints: A joint effusion is present with fluid in the suprapatellar bursa. No fracture or other acute bony abnormalities are seen. Soft tissues: Normal. XR/XR knee RT 3V* [id number] IMPRESSION: Joint effusion. No acute bony abnormality.
--- NOTE | 2020-11-13 10:31 | XRR_ITS ---
PROCEDURE INFORMATION: Exam: XR Chest, 1 View Exam date and time: 11/13/2020 10:34 AM Age: 60 years old Clinical indication: Prior surgery; Surgery date: 6+ months; Surgery type: Left mastectomy; Patient HX: Syncope/rt knee pain/possible covid TECHNIQUE: Imaging protocol: XR of the chest Views: 1 view. COMPARISON: CR XR chest 2V* [id number] 10/23/2020 4:51 PM FINDINGS: Lungs: Unremarkable. No consolidation. Pleural space: Unremarkable. No pleural effusion. No pneumothorax. Heart/Mediastinum: Unremarkable. No cardiomegaly. Bones/joints: Unremarkable. XR/XR chest 1V portable [id number] IMPRESSION: No acute findings.
[2020-11-13 10:53] VITALS: BP 110/69; PULSE 78; RESP 18; O2SAT 98
[2020-11-13 11:16] VITALS: PULSE 88
[2020-11-13 11:52] LABS: SARS Covid-2 Antigen Negative (Negative)
--- NOTE | 2020-11-13 11:52 | W.ED.EXTPRO ---
HPI - Extremity Problem General: Chief complaint: Extremity Problem,Nontraumatic Stated complaint: RT KNEE PAIN, SENT FROM [facility] Time Seen by Provider: 11/13/20 10:23 History of Present Illness: HPI Narrative: 60-year-old female patient resents to the emergency department with right knee pain and Covid symptoms. She reports was at Dr. Simpson's office, states Dr. Simpson requested her to be tested for Covid. She states went to the back of the building and no one was there for her Covid test. She reports onset of fever and chills past several days. She reports tested for Covid back in August but was negative. She denies right knee injury, reports right knee pain x1 week with inability to stand on the knee. Reports has worsened over the past week. No known trauma or injury. MD Complaint: extremity pain (Right knee) and extremity swelling (Right knee) Onset (ago): week(s) (1 week) Pain Consistency: constant Location: right and lower extremity Severity scale (1-10): 4 Associated symptoms: Reports fever(s); Deny chest pain or rash Review of Systems General: Reports: 10 or more systems reviewed and unremarkable except in HPI and below Const: Reports: fever(s), chills, body aches and fatigue; Denies: diaphoresis Eyes: Denies: blurry vision or eye redness ENMT: Denies: throat pain, dental pain or disequilibrium Card: Denies: chest pain, palpitations or irregular heart rhythm Resp: Reports: non-productive cough and chest congestion; Denies: dyspnea, productive cough or wheezing GI: Denies: abdominal pain, nausea or vomiting : Denies: difficulty voiding or dysuria Musc: Reports: extremity pain (rt knee) and joint swelling (rt knee); Denies: neck pain or back pain Skin/Breast: Denies: rash or pruritus Neuro: Denies: headache(s), weakness in extremities or behavioral changes Psych: Denies: anxiety or depression Derrek/Lymph: Denies: easy bruising PFS ED PFSH: Medical History Chest pain Congestive heart failure grade 1 diastolic dysfunction, LVEF 60% COPD (chronic obstructive pulmonary disease) CVA (cerebrovascular accident) received TPA at [facility], 2018 Cystitis Gross hematuria History of drug abuse used methamphetamine, and alcohol Seizure disorder Sleep apnea Surgical History H/O tubal ligation S/P cataract surgery S/P left mastectomy Family History Grandfather CAD (coronary artery disease) Cancer Clotting disorder Family history of premature coronary artery disease Hyperlipidemia Hypertension Lung disease Grandmother CAD (coronary artery disease) Cancer Diabetes Family history of premature coronary artery disease Hyperlipidemia Hypertension Lung disease Family/Other CAD (coronary artery disease) Clotting disorder Diabetes Family history of premature coronary artery disease Hyperlipidemia Hypertension Lung disease Stroke Father CAD (coronary artery disease) Cancer Family history of premature coronary artery disease Mother CAD (coronary artery disease) Cancer Family history of premature coronary artery disease Lung disease Brother CAD (coronary artery disease) Cancer Denies family history of Dementia Psychiatric illness Chronic kidney disease (CKD) Suicide Anesthesia complication Bleeding disorder Social History Smoking and tobacco status: current every day smoker cigarettes Packs smoked per day: 0.5 Alcohol intake: never Marital status: Physical Exam Const: COMMON NORMALS: no acute distress, patient oriented x3, healthy appearing and alert EXAM LIMITATIONS: no altered mental status and no physical limitations GENERAL APPEARANCE: cooperative, disheveled and well hydrated; not well kempt, not anxious and not ill appearing NUTRITIONAL APPEARANCE: obese ORIENTATION/CONSCIOUSNESS: Yes awake, Yes oriented to person, Yes oriented to place and Yes oriented to time HENMT: COMMON NORMALS: normocephalic, atraumatic, EAC's normal, Normal external nose present and moist oral mucous membranes HEAD & SCALP: normocephalic and atraumatic NOSE: Normal external nose present EXTERNAL AUDITORY CANAL: EAC's normal Eye: COMMON NORMALS: Equal, round and reactive pupils present and EOMs intact bilaterally GENERAL EYE: appearance normal, both eyes and all related structures PUPIL: Yes Equal, round and reactive pupils present Neck/C-Spine: COMMON NORMALS: full ROM, no lymphadenopathy and supple GENERAL: Yes normal visual inspection and Yes trachea midline CERVICAL SPINE: Yes cervical ROM normal Lymph: LYMPHATIC: no lymphadenopathy noted Chest: COMMONS NORMALS: normal inspection of the chest and normal palpation of entire chest wall Resp: COMMON NORMALS: normal respiratory effort, No retractions and No use of accessory muscles EFFORT & INSPECTION: Yes able to speak in complete sentences, No tachypneic, No respiratory distress and Yes audible wheezes Cardio: COMMON NORMALS: regular rate, regular rhythm, S1 normal heart sound present, S2 normal heart sound present and Peripheral pulses 2+ throughout RATE: regular rate RHYTHM: regular rhythm HEART SOUNDS: S1 normal heart sound present and S2 normal heart sound present PERIPHERAL PULSES: Peripheral pulses 2+ throughout GI: COMMON NORMALS: Normal to inspection, nondistended, normoactive bowel sounds present, Soft to palpation and non-tender INSPECTION: Yes normal to inspection and Yes central obesity PALPATION: Yes Soft to palpation : COMMON NORMALS: Yes no CVA tenderness BLADDER/KIDNEY EXAM: Yes no CVA tenderness Back/Pelvis: COMMON NORMALS: no CVA tenderness and thoracic and lumbar spine normal to inspection Extremity: COMMON NORMALS: normal to inspection, full ROM and capillary refill normal GENERAL: Yes normal exam except as noted RIGHT LOWER EXTREMITY: Yes knee joint (negative ecchymosis) Right knee: Yes inspection (anterior edema), Yes palpation (pain anteriorlly), Yes ROM (limited flexion) and Yes neurovascular exam (distally intact) Neuro: COMMON NORMALS: patient oriented x3 and no focal motor deficits SENSORIUM/ORIENTATION: Yes alert, Yes oriented to person, Yes oriented to place and Yes oriented to time Psych: COMMON NORMALS: mental status grossly normal, Normal thought process present and cooperative APPEARANCE: No well kempt ACTIVITY/MOTOR BEHAVIOR: Yes appropriate eye contact THOUGHT PROCESS: Normal thought process present Skin: COMMON NORMALS: no rashes or lesions noted and turgor normal GENERAL SKIN EXAM: no rashes or lesions noted and turgor normal Course Vital Signs: Vital signs: Vital Signs Temperature 97.8 F 11/13/20 10:16 Pulse Rate 88 11/13/20 11:16 Respiratory Rate 18 11/13/20 10:53 Blood Pressure 110/69 11/13/20 10:53 Pulse Oximetry 98 11/13/20 10:53 MDM - Extremity (Nontraumatic) Lab Data: Labs: Lab Results 11/13/20 11/13/20 11/13/20 Range/Units 10:36 12:32 12:32 WBC 6.1 (4.0-10.0) 10^3/ uL RBC 4.48 (4.1-5.3) 10^6/u L Hgb 13.5 (11.5-15.3) g/dL Hct 42.1 (37.0-47.0) % MCV 94.0 (81-99) fL MCH 30.1 (28.0-34.0) pg MCHC 32.1 (30.0-36.0) g/dL RDW 15.0 (12.1-15.1) % Plt Count 179 (130-400) 10^3/c mm MPV 10.1 (7.4-10.4) fL Neut % (Auto) 60.0 % Lymph % (Auto) 29.3 % Bell % (Auto) 8.3 % Eos % (Auto) 1.3 % Baso % (Auto) 0.8 % Neut # (Auto) 3.63 (1.8-7.7) 10^3/u L Lymph # (Auto) 1.8 (0.8-4.8) 10^3/u L Bell # (Auto) 0.5 (0.2-0.9) 10^3/u L Eos # (Auto) 0.1 (0.0-0.8) 10^3/u L Baso # (Auto) 0.1 (0.0-0.1) 10^3/u L Nucleated RBC % (a uto) 0 % Nucleated RBCs # 0.0 /100WBC Sodium 143 (136-145) mmol/L Potassium 3.7 (3.5-5.1) mmol/L Chloride 101 (98-107) mmol/L Carbon Dioxide 32 H (22-29) mmol/L Anion Gap 13.7 (5-19) BUN 6 (6-20) mg/dL Creatinine 0.6 (0.5-0.9) mg/dL GFR Calculation 102.7 (90-130) mL/min Glucose 102 (65-115) mg/dL Calculated Osmolal ity 294 (285-295) mOsm/k g Lactate (0.5-2.2) mmol/L Calcium 9.2 (8.5-10.5) mg/dL Total Bilirubin 0.3 (0.15-1.2) mg/dL AST 12 (0-32) U/L ALT 10 (0-33) U/L Alkaline Phosphata se 145 H (35-105) IU/L Total Protein 6.5 L (6.6-8.7) g/dL Albumin 4.1 (3.5-5.2) g/dL Globulin 2.4 (1.3-4.6) g/dL Lipase 18 (13-60) U/L SARS-CoV-2 Ag (Rap id) Negative (Negative) 11/13/20 Range/Units 12:32 WBC (4.0-10.0) 10^3/ uL RBC (4.1-5.3) 10^6/u L Hgb (11.5-15.3) g/dL Hct (37.0-47.0) % MCV (81-99) fL MCH (28.0-34.0) pg MCHC (30.0-36.0) g/dL RDW (12.1-15.1) % Plt Count (130-400) 10^3/c mm MPV (7.4-10.4) fL Neut % (Auto) % Lymph % (Auto) % Bell % (Auto) % Eos % (Auto) % Baso % (Auto) % Neut # (Auto) (1.8-7.7) 10^3/u L Lymph # (Auto) (0.8-4.8) 10^3/u L Bell # (Auto) (0.2-0.9) 10^3/u L Eos # (Auto) (0.0-0.8) 10^3/u L Baso # (Auto) (0.0-0.1) 10^3/u L Nucleated RBC % (a uto) % Nucleated RBCs # /100WBC Sodium (136-145) mmol/L Potassium (3.5-5.1) mmol/L Chloride (98-107) mmol/L Carbon Dioxide (22-29) mmol/L Anion Gap (5-19) BUN (6-20) mg/dL Creatinine (0.5-0.9) mg/dL GFR Calculation (90-130) mL/min Glucose (65-115) mg/dL Calculated Osmolal ity (285-295) mOsm/k g Lactate 1.2 (0.5-2.2) mmol/L Calcium (8.5-10.5) mg/dL Total Bilirubin (0.15-1.2) mg/dL AST (0-32) U/L ALT (0-33) U/L Alkaline Phosphata se (35-105) IU/L Total Protein (6.6-8.7) g/dL Albumin (3.5-5.2) g/dL Globulin (1.3-4.6) g/dL Lipase (13-60) U/L SARS-CoV-2 Ag (Rap id) (Negative) Imaging Data^: Xray Ortho: Radiologist's impression: [employer] [address] [place] [id number] XRay Report Signed Patient: Coby Pierce Unit #: [id number] : 1960 Age/Sex: 60 / F ADM Date: 11/13/20 Loc: ER Room/Bed: Attending Dr: Ordering Provider/Ordering MD: Jasmin Blunt Date of Service: 11/13/20 Procedure(s): XR knee RT 3V* [id number] Accession Number(s): [id number] Report Number: [id number] PROCEDURE INFORMATION: Exam: XR Right Knee Exam date and time: 11/13/2020 10:34 AM Age: 60 years old Clinical indication: Right; Patient HX: RT knee pain, syncope, poss covid TECHNIQUE: Imaging protocol: XR Right knee. Views: 3 views. COMPARISON: No relevant prior studies available. FINDINGS: Bones/joints: A joint effusion is present with fluid in the suprapatellar bursa. No fracture or other acute bony abnormalities are seen. Soft tissues: Normal. XR/XR knee RT 3V* [id number] IMPRESSION: Joint effusion. No acute bony abnormality. Dictated By: Jatin Jean Signed By: Jatin Jean Signed Date/Time: 11/13/20 112 DD/ 1122 CXR: Radiologist's impression: [facility] [address] [place] [phone] XRay Report Signed Patient: Coby Pierce Unit #: [id number] : 1960 Age/Sex: 60 / F ADM Date: 11/13/20 Loc: ER Room/Bed: Attending Dr: Ordering Provider/Ordering MD: Jasmin Blunt Date of Service: 11/13/20 Procedure(s): XR chest 1V portable [id number] Accession Number(s): [id number] Report Number: [id number] PROCEDURE INFORMATION: Exam: XR Chest, 1 View Exam date and time: 11/13/2020 10:34 AM Age: 60 years old Clinical indication: Prior surgery; Surgery date: 6+ months; Surgery type: Left mastectomy; Patient HX: Syncope/rt knee pain/possible covid TECHNIQUE: Imaging protocol: XR of the chest Views: 1 view. COMPARISON: CR XR chest 2V* [id number] 10/23/2020 4:51 PM FINDINGS: Lungs: Unremarkable. No consolidation. Pleural space: Unremarkable. No pleural effusion. No pneumothorax. Heart/Mediastinum: Unremarkable. No cardiomegaly. Bones/joints: Unremarkable. XR/XR chest 1V portable [id number] IMPRESSION: No acute findings. Dictated By: Jatin Jean Signed By: Jatin Jean Signed Date/Time: 11/13/20 112 DD/ 1121 Discharge Plan Discharge Patient Disposition: Home Clinical Impression: Effusion of knee joint right, Bronchitis Acute knee pain Qualifiers: Laterality: right Qualified Code(s): M25.561 - Pain in right knee Condition: Stable Prescriptions: New Augmentin 875-125 mg tablet 1 tab PO BID Qty: 14 RF: 0 No Action anastrozole [Arimidex] 1 mg tablet 1 mg PO QDAY RF: 0 (DME) Compact Compressor Nebulizer Misc See Rx Instructions .ROUTE .MEDSUPPLY Qty: 1 RF: 0 folic acid 400 mcg tablet 0.4 mg PO QDAY RF: 0 sodium chloride [[place] Nasal] 0.65 % aerosol,spray 1 spray INTRANASAL ONCE RF: 0 citalopram [Celexa] 40 mg tablet 40 mg PO QDAY RF: 0 atorvastatin [Lipitor] 80 mg tablet 80 mg PO QDAY RF: 0 verapamil [Verelan] 120 mg capsule,ext rel. pellets 24 hr 120 mg PO QAM RF: 0 levetiracetam [Keppra] 500 mg tablet 500 mg PO BID RF: 0 amitriptyline 50 mg tablet 50 mg PO QDAY RF: 0 loratadine [Claritin Liqui-Gel] 10 mg capsule 10 mg PO QDAY RF: 0 trazodone 100 mg tablet 100 mg PO QDAY RF: 0 promethazine 25 mg tablet 25 mg PO Q6H PRN (Reason: Nausea And Vomiting) RF: 0 albuterol sulfate 90 mcg/actuation aerosol powdr breath activated 1 inh INHALATION Q4H PRN (Reason: shortness of breath) RF: 0 gabapentin 300 mg capsule 700 mg PO TID RF: 0 ondansetron HCl [Zofran] 4 mg tablet 4 mg PO Q6H PRNRF: 0 cholecalciferol (vitamin D3) 1,250 mcg (50,000 unit) capsule 50,000 unit PO DIRECTED RF: 0 epinephrine 0.3 mg/0.3 mL auto-injector 0.3 mg IM Q10M PRN (Reason: Allergic Symptoms) RF: 0 diphenoxylate-atropine 2.5-0.025 mg tablet 1 tab PO QID RF: 0 lnuftuzdgj-kbugsoffgfoqa-ndma 50-300-40 mg capsule 1 cap PO Q8H PRNRF: 0 baclofen 10 mg tablet 5 mg PO TID RF: 0 cyclobenzaprine 10 mg tablet 10 mg PO TID RF: 0 phenazopyridine [Pyridium] 200 mg tablet 200 mg PO TID Qty: 12 RF: 0 levofloxacin 500 mg tablet 500 mg PO DAILY Qty: 14 RF: 0 hydrocodone-acetaminophen [[place]] 5-325 mg tablet 1 tab PO Q6H PRN (Reason: pain) 2 Days Qty: 8 RF: 0 nitroglycerin 0.4 mg tablet, sublingual 0.4 mg SUBLINGUAL Q5M PRN (Reason: chest pain) Qty: 30 RF: 1 Klor-Con M20 20 mEq tablet,ER particles/crystals 20 meq PO TID 90 Days Qty: 270 RF: 3 aspirin 81 mg tablet,delayed release (DR/EC) 81 mg PO QDAY Qty: 90 RF: 3 furosemide 40 mg tablet 40 mg PO DAILY Qty: 90 RF: 3 isosorbide mononitrate 30 mg tablet extended release 24 hr 30 mg PO BID Qty: 180 RF: 3 calcium carbonate [Calcium 500] 500 mg calcium (1,250 mg) Tablet 500 mg PO DAILY RF: 0 promethazine [Phenadoz] 25 mg suppository 25 mg ID DAILY PRN (Reason: Nausea) RF: 0 nystatin 100,000 unit/gram Cream See Rx Instructions .ROUTE .COMPLEX PRN (Reason: Rash) RF: 0 pantoprazole 40 mg tablet,delayed release (DR/EC) 40 mg PO DAILY Qty: 30 RF: 8 Discharge Orders: Discharge ED (Routine); Ordered 11/13/20 Ordered By: Jasmin Blunt Referrals: Sravani Paul [Primary Care Provider] - Discharge Diet: Usual diet Discharge Activity: Limit activity as instructed Patient Instructions: Bronchitis (Acute) - Adult, Knee Effusion (ED), Knee Immobilizer (ED) Activity Restrictions/Additional Instructions: Keep right knee elevated, apply cool compresses to help with pain Turn to the emergency department if you develop inability to catch your breath, difficulty breathing or worsening symptoms such as fever chills Follow-up with your primary care provider this week without fail, take Augmentin until all gone even if feeling better Continue to utilize albuterol as needed for shortness of breath and cough Continue Tylenol and pain medication you have at home as needed for pain Coding Level of Care Code ED Appliances Sample Maker for Yari Fwd Exam Comprehensive
[2020-11-13] MEDS: HYDROcodone-acetaminophen 5-325 mg Tablet 1 TAB PO (12:36)
[2020-11-13 12:52] LABS: Basophils # 0.1 10^3/uL (0.0-0.1); Basophils % 0.8 %; Eosinophils # 0.1 10^3/uL (0.0-0.8); Eosinophils % 1.3 %; Hematocrit 42.1 % (37.0-47.0); Hemoglobin 13.5 g/dL (11.5-15.3); Lymphocytes # 1.8 10^3/uL (0.8-4.8); Lymphocytes % 29.3 %; Mean Corpuscular HGB Conc 32.1 g/dL (30.0-36.0); Mean Corpuscular Hemoglobin 30.1 pg (28.0-34.0); Mean Platelet Volume 10.1 fL (7.4-10.4); Monocytes # 0.5 10^3/uL (0.2-0.9); Monocytes % 8.3 %; Neutrophils # 3.63 10^3/uL (1.8-7.7); Nucleated Red Blood Cells % 0 %; Platelet Count 179 10^3/cmm (130-400); Red Blood Count 4.48 10^6/uL (4.1-5.3); White Blood Count 6.1 10^3/uL (4.0-10.0)
[2020-11-13 13:12] LABS: Alanine Aminotransferase 10 U/L (0-33); Albumin Level 4.1 g/dL (3.5-5.2); Alkaline Phosphatase 145 IU/L (35-105); Anion Gap 13.7 (5-19); Aspartate Amino Transferase 12 U/L (0-32); Blood Urea Nitrogen 6 mg/dL (6-20); Calcium 9.2 mg/dL (8.5-10.5); Carbon Dioxide 32 mmol/L (22-29); Chloride 101 mmol/L (98-107); Globulin 2.4 g/dL (1.3-4.6); Glomerular Filtration Rate 102.7 mL/min (90-130); Glucose 102 mg/dL (65-115); Lipase 18 U/L (13-60); Osmolality Calculated 294 mOsm/kg (285-295); Potassium 3.7 mmol/L (3.5-5.1); Sodium 143 mmol/L (136-145); Total Bilirubin 0.3 mg/dL (0.15-1.2); Total Protein 6.5 g/dL (6.6-8.7)
[2020-11-13 13:13] LABS: Lactate (Lactic Acid level) 1.2 mmol/L (0.5-2.2)
--- NOTE | 2020-11-14 08:38 | DCPLANNER ---
Addendum entered by Arlette Genao 12/05/20 09:43: fishing manager called the ortho clinic to confirm that a follow up appointment had been scheduled for patient. fishing manager spoke with Anjelica, was told that clinic has tried to make contact with patient several times, and has left voicemails for patient to return clinics phone call. Clinic is waiting for patient to call clinic back to schedule an appointment. Original Note: fishing manager had message to schedule a follow up appointment for patient with ortho. fishing manager called the ortho clinic, spoke with Anjelica, gave clinic patients information. fishing manager was told that patients information would be printed and reviewed. Clinic will call patient with appointment information.
== END 2020-11-13 14:00 | disposition home or self-care (01) ==
PROVIDERS: Emergency Provider Nurse Practitioner Family; PCP Registered Nurse
DX: M25.461 Effusion, right knee (principal); J40 Bronchitis, not specified as acute or chronic; Z79.82 Long term (current) use of aspirin; I50.9 Heart failure, unspecified; J44.9 Chronic obstructive pulmonary disease, unspecified; Z86.73 Personal history of transient ischemic attack (TIA), and cerebral infarction without residual deficits; F17.210 Nicotine dependence, cigarettes, uncomplicated
CPT/HCPCS: 12345; 29530; 71045; 73562; 80053; 81003; 83605; 83690; 85025; 87086; 87426; 88112; 99282; 99283

== ENCOUNTER 2021-01-17 12:42 | Outpatient (CLI) | payer MEDICAID, SELFPAY ==
--- NOTE | 2021-01-17 12:56 | MM_ITS ---
WS: [id number] DIAGNOSTIC RIGHT DIGITAL MAMMOGRAM WITH CAD HISTORY: HX OF BREAST CA;LT MASTECTOMY COMPARISON: 05/21/2017 and 04/05/2016 Technique: CC, MLO and ML views. Breast composition: There are scattered areas of fibroglandular density. No suspicious calcification s or distortion. No retraction of the nipple. MM/[place] [id number] IMPRESSION: BI-RADS: 1-Negative FOLLOW UP: 1 Year Follow-up
== END 2021-01-17 12:43 | disposition home or self-care (01) ==
LOC: RADSHAW 12:44
PROVIDERS: PCP Registered Nurse; Visit Provider Registered Nurse
DX: Z85.3 Personal history of malignant neoplasm of breast (principal); Z90.12 Acquired absence of left breast and nipple
CPT/HCPCS: 77065

== ENCOUNTER 2021-02-02 13:44 | Outpatient (CLI) | payer MEDICAID, SELFPAY ==
--- NOTE | 2021-02-02 | US_ITS ---
WS: [id number] INDICATION: Left chest ultrasound for patient directed pain TECHNIQUE: Ultrasound soft tissue chest FINDINGS: Ultrasound soft tissue left chest area of concern. Prior mastectomy. No evidence of drainab le abscess or fluid collection. Enlarged lymph node in the left axilla measuring 2.4 x 1.9 x 0.9 cm. Preserved fatty hilum with no significant cortical thickening.Additional normal sized lymph node page uring 1.2 x 1.1 x 0.6 cm. US/US chest [id number] IMPRESSION: Enlarged lymph node left axilla measuring 2.4 x 1.9 x 0.9 cm. Normal preserved fatty hilum. No significant cortical thickening. This could be sampled with ult rasound-guided biopsy if clinical concern versus short interval ultrasound foll ow-up in 4-6 weeks
== END 2021-02-02 13:45 | disposition home or self-care (01) ==
LOC: RAD 13:49
PROVIDERS: PCP Registered Nurse; Visit Provider Registered Nurse
DX: R07.89 Other chest pain (principal); Z85.3 Personal history of malignant neoplasm of breast; Z90.12 Acquired absence of left breast and nipple
CPT/HCPCS: 76604

== ENCOUNTER 2021-02-24 09:02 | Emergency (ER) | payer MEDICAID, SELFPAY ==
[2021-02-24 09:14] VITALS: BP 113/72; RESP 17; TEMP 36.8; O2SAT 95; BMI 34.5
--- NOTE | 2021-02-24 09:40 | W.ED.EXTPRO ---
HPI - Extremity Problem General: Chief complaint: Extremity Injury, Lower Stated complaint: foot injury, leg/knee pain Time Seen by Provider: 02/24/21 09:12 History of Present Illness: HPI Narrative: Patient complains about left knee pain is been going on for over a month. Denies injury. Does have history of chronic pain. Patient states it hurts with range of motion and bearing weight. Is stiff sometimes in the morning. Now other knee is hurting some because she has been favoring this knee. Denies other problems. Complaint: joint pain Onset (ago): month(s) Pain Consistency: constant Location: left and knee Quality: aching Radiation: none Relieving factors: immobilization Exacerbating factors: range of motion and weight bearing Associated symptoms: Reports no associated symptoms; Deny chest pain, fever(s) or rash Review of Systems Narrative: Patient denies alcohol use x32 years. Const: Denies: fever(s), chills or body aches Eyes: Denies: change in vision or blurry vision ENMT: Denies: throat pain or nasal congestion Card: Denies: chest pain or dyspnea on exertion Resp: Denies: dyspnea, productive cough or non-productive cough GI: Denies: abdominal pain, nausea or vomiting Musc: Reports: joint pain (Bilateral knees left worse than right); Denies: extremity pain Skin/Breast: Denies: rash Neuro: Denies: headache(s) Psych: Denies: anxiety or depression Derrek/Lymph: Denies: easy bruising PFSH ED PFSH: Medical History Chest pain Congestive heart failure grade 1 diastolic dysfunction, LVEF 60% COPD (chronic obstructive pulmonary disease) CVA (cerebrovascular accident) received TPA at [facility], 2018 Cystitis Gross hematuria History of drug abuse used methamphetamine, and alcohol Seizure disorder Sleep apnea Surgical History H/O tubal ligation S/P cataract surgery S/P left mastectomy Family History Grandfather CAD (coronary artery disease) Cancer Clotting disorder Family history of premature coronary artery disease Hyperlipidemia Hypertension Lung disease Grandmother CAD (coronary artery disease) Cancer Diabetes Family history of premature coronary artery disease Hyperlipidemia Hypertension Lung disease Family/Other CAD (coronary artery disease) Clotting disorder Diabetes Family history of premature coronary artery disease Hyperlipidemia Hypertension Lung disease Stroke Father CAD (coronary artery disease) Cancer Family history of premature coronary artery disease Mother CAD (coronary artery disease) Cancer Family history of premature coronary artery disease Lung disease Brother CAD (coronary artery disease) Cancer Denies family history of Dementia Psychiatric illness Chronic kidney disease (CKD) Suicide Anesthesia complication Bleeding disorder Social History Smoking and tobacco status: current every day smoker cigarettes Packs smoked per day: 0.5 Alcohol intake: never Marital status: Physical Exam Const: COMMON NORMALS: no acute distress Resp: COMMON NORMALS: normal respiratory effort Cardio: COMMON NORMALS: regular rate RATE: regular rate GI: INSPECTION: Yes normal to inspection Extremity: LEFT LOWER EXTREMITY: Yes knee joint (Tender palpation, no swelling, no erythema) Left knee: Yes ROM (Full) and Yes neurovascular exam (Intact) Psych: COMMON NORMALS: mental status grossly normal Course Vital Signs: Vital signs: Vital Signs Temperature 98.3 F 02/24/21 09:14 Respiratory Rate 17 02/24/21 09:14 Blood Pressure 113/72 02/24/21 09:14 Pulse Oximetry 95 02/24/21 09:14 MDM - Extremity (Nontraumatic) MDM Narrative: Medical decision making narrative: Patient presents chronic knee pain. It is bilateral worse on the left than the right. She does have some stiffness in the morning. There is no redness swelling no evidence of DVT are superficial clot to that knee area does have pain with range of motion palpation throughout the knee joint itself. No swelling distally no overt Gay's cyst. Patient encouraged to follow-up with PCP. Discharge Plan Discharge Patient Disposition: Home Clinical Impression: Chronic pain of left knee Condition: Stable Prescriptions: New tramadol 50 mg tablet 50 mg PO TID PRN (Reason: pain) Qty: 14 RF: 0 No Action anastrozole [Arimidex] 1 mg tablet 1 mg PO QDAY RF: 0 (DME) Compact Compressor Nebulizer Misc See Rx Instructions .ROUTE .MEDSUPPLY Qty: 1 RF: 0 folic acid 400 mcg tablet 0.4 mg PO QDAY RF: 0 sodium chloride [[place] Nasal] 0.65 % aerosol,spray 1 spray INTRANASAL ONCE RF: 0 citalopram [Celexa] 40 mg tablet 40 mg PO QDAY RF: 0 atorvastatin [Lipitor] 80 mg tablet 80 mg PO QDAY RF: 0 verapamil [Verelan] 120 mg capsule,ext rel. pellets 24 hr 120 mg PO QAM RF: 0 levetiracetam [Keppra] 500 mg tablet 500 mg PO BID RF: 0 amitriptyline 50 mg tablet 50 mg PO QDAY RF: 0 loratadine [Claritin Liqui-Gel] 10 mg capsule 10 mg PO QDAY RF: 0 trazodone 100 mg tablet 100 mg PO QDAY RF: 0 promethazine 25 mg tablet 25 mg PO Q6H PRN (Reason: Nausea And Vomiting) RF: 0 albuterol sulfate 90 mcg/actuation aerosol powdr breath activated 1 inh INHALATION Q4H PRN (Reason: shortness of breath) RF: 0 gabapentin 300 mg capsule 700 mg PO TID RF: 0 ondansetron HCl [Zofran] 4 mg tablet 4 mg PO Q6H PRNRF: 0 cholecalciferol (vitamin D3) 1,250 mcg (50,000 unit) capsule 50,000 unit PO DIRECTED RF: 0 epinephrine 0.3 mg/0.3 mL auto-injector 0.3 mg IM Q10M PRN (Reason: Allergic Symptoms) RF: 0 diphenoxylate-atropine 2.5-0.025 mg tablet 1 tab PO QID RF: 0 wcxxduxtog-tbvmtvfulhxsn-ojtp 50-300-40 mg capsule 1 cap PO Q8H PRNRF: 0 baclofen 10 mg tablet 5 mg PO TID RF: 0 cyclobenzaprine 10 mg tablet 10 mg PO TID RF: 0 phenazopyridine [Pyridium] 200 mg tablet 200 mg PO TID Qty: 12 RF: 0 levofloxacin 500 mg tablet 500 mg PO DAILY Qty: 14 RF: 0 hydrocodone-acetaminophen [[place]] 5-325 mg tablet 1 tab PO Q6H PRN (Reason: pain) 2 Days Qty: 8 RF: 0 nitroglycerin 0.4 mg tablet, sublingual 0.4 mg SUBLINGUAL Q5M PRN (Reason: chest pain) Qty: 30 RF: 1 aspirin 81 mg tablet,delayed release (DR/EC) 81 mg PO QDAY Qty: 90 RF: 3 furosemide 40 mg tablet 40 mg PO DAILY Qty: 90 RF: 3 isosorbide mononitrate 30 mg tablet extended release 24 hr 30 mg PO BID Qty: 180 RF: 3 potassium chloride 20 mEq tablet,ER particles/crystals See Rx Instructions .ROUTE .COMPLEX Qty: 270 RF: 2 calcium carbonate [Calcium 500] 500 mg calcium (1,250 mg) Tablet 500 mg PO DAILY RF: 0 promethazine [Phenadoz] 25 mg suppository 25 mg GA DAILY PRN (Reason: Nausea) RF: 0 nystatin 100,000 unit/gram Cream See Rx Instructions .ROUTE .COMPLEX PRN (Reason: Rash) RF: 0 pantoprazole 40 mg tablet,delayed release (DR/EC) 40 mg PO DAILY Qty: 30 RF: 8 Augmentin 875-125 mg tablet 1 tab PO BID Qty: 14 RF: 0 Discharge Orders: Discharge ED (Routine); Ordered 02/24/21 Ordered By: Nick Stein Referrals: Sravani Paul [Primary Care Provider] - Discharge Diet: Usual diet Discharge Activity: Increase activity as tolerated Patient Instructions: Knee Pain (ED), Opioid Safety Activity Restrictions/Additional Instructions: Follow-up with medical provider as directed. Take medications as prescribed. Return to the ER or your medical provider if condition worsens. Please read and understand discharge instructions. If any questions ask please. Coding Level of Care Code ED Malware Analyst for Yari Fwamy Exam Detailed
--- NOTE | 2021-02-24 15:43 | ED_ITS ---
HPI - Extremity Problem General: Chief complaint: Extremity Injury, Lower Stated complaint: foot injury, leg/knee pain Time Seen by Provider: 02/24/21 09:12 History of Present Illness: Pain Consistency: constant Location: left and knee Quality: aching Relieving factors: immobilization Exacerbating factors: range of motion and weight bearing [facility] ED PFSH: Medical History Chest pain Congestive heart failure grade 1 diastolic dysfunction, LVEF 60% COPD (chronic obstructive pulmonary disease) CVA (cerebrovascular accident) received TPA at [facility], 2018 Cystitis Gross hematuria History of drug abuse used methamphetamine, and alcohol Seizure disorder Sleep apnea Surgical History H/O tubal ligation S/P cataract surgery S/P left mastectomy Family History Grandfather CAD (coronary artery disease) Cancer Clotting disorder Family history of premature coronary artery disease Hyperlipidemia Hypertension Lung disease Grandmother CAD (coronary artery disease) Cancer Diabetes Family history of premature coronary artery disease Hyperlipidemia Hypertension Lung disease Family/Other CAD (coronary artery disease) Clotting disorder Diabetes Family history of premature coronary artery disease Hyperlipidemia Hypertension Lung disease Stroke Father CAD (coronary artery disease) Cancer Family history of premature coronary artery disease Mother CAD (coronary artery disease) Cancer Family history of premature coronary artery disease Lung disease Brother CAD (coronary artery disease) Cancer Denies family history of Dementia Psychiatric illness Chronic kidney disease (CKD) Suicide Anesthesia complication Bleeding disorder Social History Smoking and tobacco status: current every day smoker cigarettes Packs smoked per day: 0.5 Alcohol intake: never Marital status: Course Vital Signs: Vital signs: Vital Signs Temperature 98.3 F 02/24/21 09:14 Respiratory Rate 17 02/24/21 09:14 Blood Pressure 113/72 02/24/21 09:14 Pulse Oximetry 95 02/24/21 09:14 Discharge Plan Discharge Patient Disposition: Home Clinical Impression: Chronic pain of left knee Condition: Stable Prescriptions: New tramadol 50 mg tablet 50 mg PO TID PRN (Reason: pain) Qty: 14 RF: 0 No Action anastrozole [Arimidex] 1 mg tablet 1 mg PO QDAY RF: 0 (DME) Compact Compressor Nebulizer Misc See Rx Instructions .ROUTE .MEDSUPPLY Qty: 1 RF: 0 folic acid 400 mcg tablet 0.4 mg PO QDAY RF: 0 sodium chloride [Makena Nasal] 0.65 % aerosol,spray 1 spray INTRANASAL ONCE RF: 0 citalopram [Celexa] 40 mg tablet 40 mg PO QDAY RF: 0 atorvastatin [Lipitor] 80 mg tablet 80 mg PO QDAY RF: 0 verapamil [Verelan] 120 mg capsule,ext rel. pellets 24 hr 120 mg PO QAM RF: 0 levetiracetam [Keppra] 500 mg tablet 500 mg PO BID RF: 0 amitriptyline 50 mg tablet 50 mg PO QDAY RF: 0 loratadine [Claritin Liqui-Gel] 10 mg capsule 10 mg PO QDAY RF: 0 trazodone 100 mg tablet 100 mg PO QDAY RF: 0 promethazine 25 mg tablet 25 mg PO Q6H PRN (Reason: Nausea And Vomiting) RF: 0 albuterol sulfate 90 mcg/actuation aerosol powdr breath activated 1 inh INHALATION Q4H PRN (Reason: shortness of breath) RF: 0 gabapentin 300 mg capsule 700 mg PO TID RF: 0 ondansetron HCl [Zofran] 4 mg tablet 4 mg PO Q6H PRNRF: 0 cholecalciferol (vitamin D3) 1,250 mcg (50,000 unit) capsule 50,000 unit PO DIRECTED RF: 0 epinephrine 0.3 mg/0.3 mL auto-injector 0.3 mg IM Q10M PRN (Reason: Allergic Symptoms) RF: 0 diphenoxylate-atropine 2.5-0.025 mg tablet 1 tab PO QID RF: 0 elsbaxbsnl-dnnaizqmglaca-mhih 50-300-40 mg capsule 1 cap PO Q8H PRNRF: 0 baclofen 10 mg tablet 5 mg PO TID RF: 0 cyclobenzaprine 10 mg tablet 10 mg PO TID RF: 0 phenazopyridine [Pyridium] 200 mg tablet 200 mg PO TID Qty: 12 RF: 0 levofloxacin 500 mg tablet 500 mg PO DAILY Qty: 14 RF: 0 hydrocodone-acetaminophen [[place]] 5-325 mg tablet 1 tab PO Q6H PRN (Reason: pain) 2 Days Qty: 8 RF: 0 nitroglycerin 0.4 mg tablet, sublingual 0.4 mg SUBLINGUAL Q5M PRN (Reason: chest pain) Qty: 30 RF: 1 aspirin 81 mg tablet,delayed release (DR/EC) 81 mg PO QDAY Qty: 90 RF: 3 furosemide 40 mg tablet 40 mg PO DAILY Qty: 90 RF: 3 isosorbide mononitrate 30 mg tablet extended release 24 hr 30 mg PO BID Qty: 180 RF: 3 potassium chloride 20 mEq tablet,ER particles/crystals See Rx Instructions .ROUTE .COMPLEX Qty: 270 RF: 2 calcium carbonate [Calcium 500] 500 mg calcium (1,250 mg) Tablet 500 mg PO DAILY RF: 0 promethazine [Phenadoz] 25 mg suppository 25 mg MT DAILY PRN (Reason: Nausea) RF: 0 nystatin 100,000 unit/gram Cream See Rx Instructions .ROUTE .COMPLEX PRN (Reason: Rash) RF: 0 pantoprazole 40 mg tablet,delayed release (DR/EC) 40 mg PO DAILY Qty: 30 RF: 8 Augmentin 875-125 mg tablet 1 tab PO BID Qty: 14 RF: 0 Discharge Orders: Discharge ED (Routine); Ordered 02/24/21 Ordered By: Nick Stein Referrals: Sravani Paul [Primary Care Provider] - Discharge Diet: Usual diet Discharge Activity: Increase activity as tolerated Patient Instructions: Knee Pain (ED), Opioid Safety Activity Restrictions/Additional Instructions: Follow-up with medical provider as directed. Take medications as prescribed. Return to the ER or your medical provider if condition worsens. Please read and understand discharge instructions. If any questions ask please. Coding Level of Care Code ED Skiff Operator for Yari Purdy
== END 2021-02-24 10:50 | disposition home or self-care (01) ==
PROVIDERS: Emergency Provider Nurse Practitioner Family; PCP Registered Nurse
DX: G89.29 Other chronic pain (principal); M25.562 Pain in left knee; Z79.82 Long term (current) use of aspirin; I11.0 Hypertensive heart disease with heart failure; I50.30 Unspecified diastolic (congestive) heart failure; J44.9 Chronic obstructive pulmonary disease, unspecified; Z86.73 Personal history of transient ischemic attack (TIA), and cerebral infarction without residual deficits; F17.210 Nicotine dependence, cigarettes, uncomplicated
CPT/HCPCS: 99282

== ENCOUNTER 2021-03-12 12:25 | Outpatient (CLI) | payer MEDICAID, SELFPAY ==
--- NOTE | 2021-03-12 12:33 | US_ITS ---
WS: [id number] ULTRASOUND SOFT TISSUES LEFT chest. HISTORY: LEFT SIDED CHEST WALL PAIN/HX OF L BREAST CA COMPARISON: 02/02/2021 TECHNIQUE: 2-D and color Doppler imaging is submitted. Ultrasound is directed to the LEFT chest wall at the mastectomy site. No mass is identified. There ar e small benign-appearing lymph nodes near the mastectomy site. No interval change since the prior ciriol dy. Note: If there is concern for recurrence at the mastectomy site further evaluation with PET/CT or [facility] st CT with contrast is recommended. US/US chest [id number] IMPRESSION: No appreciable soft tissue mass in the LEFT chest wall at the mastectomy site. No change since 02/02/2021.
--- NOTE | 2021-03-12 12:33 | USR_ITS ---
PROCEDURE INFORMATION: Exam: US Duplex Left Lower Extremity Veins, Limited Exam date and time: 03/12/2021 12:45 PM Age: 60 years old Clinical indication: Leg, lower; Left; Patient HX: PT has v. V. And had pain in leg; Additional info: Varicose veins of left lower extremity w/pain TECHNIQUE: Imaging protocol: Real-time Duplex ultrasound of the Left Lower Extremity with 2-D cole scale, color Doppler flow and spectral waveform analysis with image documentation. Limited exam focused on the left lower extremity veins. Total images: [id number] COMPARISON: No relevant prior studies available. FINDINGS: Left deep veins: Unremarkable. The common femoral, femoral, proximal profunda femoral and popliteal veins are patent without thrombus. Normal Doppler waveforms. Normal compressibility and/or augmentation response. Left superficial veins: Unremarkable. Saphenofemoral junction is patent without thrombus. Soft tissues: Unremarkable. US/CV venous dup insufficie LE LT IMPRESSION: No evidence of deep vein thrombosis.
== END 2021-03-12 12:26 | disposition home or self-care (01) ==
LOC: US 12:26
PROVIDERS: PCP Registered Nurse; Visit Provider Registered Nurse
DX: R07.89 Other chest pain (principal); Z85.3 Personal history of malignant neoplasm of breast; Z90.12 Acquired absence of left breast and nipple; I83.812 Varicose veins of left lower extremity with pain
CPT/HCPCS: 76604; 93971

== ENCOUNTER 2021-03-15 09:53 | Outpatient (CLI) | payer MEDICAID, SELFPAY ==
--- NOTE | 2021-03-19 11:50 | ONC CON_ITS ---
Dr. Patrick New Patient Note Patient: Coby Pierce Unit #: [id number]: [id number] Dicatated By: Jaret Patrick M.D.Date of Visit: Mar 15, 2021 Onc MED New Patient/Consult Referring Physician: No 'Referrals from' exist for this patient. History of Present Illness: Mr. Coby Pierce, is a 60-year-old female with history of stage IIb, T2N1A, ER/VA positive, HER-2/princess negative invasive ductal adenocarcinoma status post left mastectomy done on June 19, 2016 which showed invasive ductal carcinoma grade 2, 2.7 cm with clear surgical margin, DCIS was present with negative margins, 2 out of 4 lymph node +,1 in the axillary 1 sentinel,, ER 99% positive VA 13% positive Ki-67 42%, Oncotype returned intermediate with recurrence score of 25, postsurgically she developed infected postoperative seroma, wound infection and slight dehiscence, patient was offered adjuvant chemotherapy but as per medical record patient declined patient was also offered radiation therapy and she declined that too, patient was confirmed and postmenopausal both biochemically moreover as per patient the last time she had her menses Was in 2012, On September 12, 2016 patient was started on Arimidex along with vitamin D and calcium supplement. Her past medical history significant for coronary artery disease status post OR in 2002, possible cardiac arrest, no angioplasty or stent, history of CVA but as per medical oncology note there was no finding of CVA on her imaging done for stroke in November 2015. Hyperlipidemia, diabetes, peripheral neuropathy, history of epilepsy by report, neurology evaluation done in November 2015 was questioning these and considering psychosomatic component. COPD Patient has moved to [place] and now here to establish her care, recently on January 17, 2021 she underwent mammogram which was BI-RADS 1, negative and also underwent ultrasound left chest on February 02, 2021 which showed enlarged lymph node in left axilla measuring 2.4 x 1.9 x 0.9 cm, repeat ultrasound left chest wall done on March 12, 2021 showed no appreciable soft tissue mass in the left chest wall at the mastectomy site, no change since February 02, 2021 and there are small benign appearing lymph nodes at the mastectomy site no interval change because of lower extremities edema, she underwent venous Doppler study of left leg on March 12, 2020 which showed no evidence of DVT Patient denies any specific complaints, no fever chills, no nausea or vomiting, no diarrhea or constipation, no new bony pains or chronic back pain and left chest wall/axilla pain/discomfort also complaining of weight gain but no night sweats no hot flashes tolerating Arimidex well otherwise and she is also concerned about persistent lymph nodes in her left axilla seen on ultrasound left chest wall Past Medical History: Ms. Pierce's medical history consists of cerebrovascular accident, chronic obstructive pulmonary disease, coronary artery disease, epilepsy, hyperlipidemia, peripheral neuropathy, type II diabetes, and myocardial infarction in 2002. Past Surgical History: Ms. Pierce's surgical/procedural history consists of breast biopsy, mastectomy, covid vaccine #2 in 2020, and covid vaccine #1 in 2020. Medications: Acetaminophen Extra Strength Tablet Oral, Albuterol Sulfate Aerosol Powder, Breath Activated Inhalation, Amitriptyline HCl Tablet Oral, Anastrozole Tablet Oral, Aspirin 81 Tablet, chewable Oral, Atorvastatin Calcium Tablet Oral, Azelastine HCl Solution Nasal, Baclofen Tablet Oral, Brexpiprazole Tablet Oral, Calan SR Tablet, controlled release Oral, Ronan-Carb Forte Tablet Oral, CeleXA Tablet Oral, Claritin Tablet Oral, Dexilant Capsule Delayed Release Oral, Dulera Aerosol Inhalation, Folic Acid Tablet Oral, Furosemide Tablet Oral, Gabapentin Tablet Oral, HYDROcodone-Acetaminophen Tablet Oral, Ipratropium-Albuterol Solution Inhalation, Isosorbide Mononitrate ER Tablet SR 24 HR Oral, Keppra Tablet Oral, K-Tab Tablet, controlled release Oral, Lomotil Tablet Oral, Loprox Suspension Topical, Maxalt Tablet Oral, Meclizine HCl Tablet, chewable Oral, Nystatin Powder Topical, Ondansetron Tablet Dispersable Oral, Oxybutynin Chloride ER Tablet SR 24 HR Oral, Pantoprazole Sodium Tablet, enteric coated Oral, Pataday Solution Ophthalmic, Promethazine HCl Suppository Rectal, traZODone HCl Tablet Oral, Vitamin D2 Tablet Oral Allergies: Bee Venom, Cimetidine, Dicyclomine HCl, Erythromycin, Ibuprofen, Nicotine, predniSONE, and Varenicline Tartrate. Social History: Ms. Pierce is . She is an occasional smoker who smokes 0.5 packs/day. She has no history of drinking. She has indicated exposure to the following products: marijuana. Family History: Ms. Pierce's mother at age 55. Ms. Pierce's father is . BOTH PARENTS OF CANCER. Review Of Symptoms: Review of Systems is not available for this patient. Vital Signs: Performed on Mar 15, 2021 10:53: 4, 8, 35.25 (HIGH), 1.93 sq.m, 63 in, 96 %, 80 /min, 18 /min, 110/70 mm(hg), 97.3 F (LOW), and 199 lbs (HIGH). Performance Status: 1 - No physically strenuous activity, but ambulatory and able to carry out light or sedentary work (e.g. office work, light house work). (ECOG) Physical Examination: ENMT - Poor oral hygiene but no mucositis or thrush, Respiratory - Poor air entry with mild wheezing, Cardiovascular - Regular rate and rhythm of heart, Abdomen - Soft, bowel sounds present, Extremities - 1+ edema left leg. Lab/Imaging: Most recent lab results are not available for this patient. Impression: Stage IIb, ER/VA, HER-2/princess negative invasive ductal adenocarcinoma status post left mastectomy with sentinel lymph node done on June 19, 2016, final pathology report confirmed invasive ductal carcinoma grade 2, ER 99% positive VA 13% positive Ki-67 42%, HER-2/princess negative Oncotype DX intermediate at 25, postop period was complicated by chest wound infection As per medical record patient denied recommended adjuvant chemotherapy and radiation therapy but opted for hormonal therapy with Arimidex which was started in August 2016 for 5 years History of coronary artery disease, OR in 2002, possible cardiac arrest, no angioplasty or stent History of CVA but diagnosis was somewhat unclear, patient had imaging done in November 2015 showed no evidence of stroke History of epilepsy by patient report, neuro consult done in November 2015 was questioning these findings and there was a concern regarding psychosomatic component. Peripheral neuropathy Diabetes mellitus Chronic back pain Plan: Discussed with patient regarding her concern and question specially with persistent lower back pain and left axillary/anterior chest wall pain patient recently underwent mammogram as well as sonogram of left chest wall which shows there was evidence of enlarged lymph node in left axilla size 2.4 x 1.9 x 0.9 cm and follow-up ultrasound done in February 2021 confirmed persistent lymph node right breast mammogram was BI-RADS 1, patient is tolerating Arimidex well but concern is whether she has recurrence of disease at this point we will consider CT PET scan, if CT PET scan is normal then will continue Arimidex for total 5 years since started in August 2016 so she will complete 5 years of Arimidex in August 2021, in the meantime we will continue supportive care, patient was advised to quit smoking and was offered any assistance she may need Patient will return to clinic after CT PET scan for further discussion Signed By: Jaret Patrick M.D. <<Signature on File>>
== END 2021-03-15 09:54 | disposition home or self-care (01) ==
PROVIDERS: PCP Registered Nurse; Visit Provider Internal Medicine Hematology & Oncology
DX: C50.112 Malignant neoplasm of central portion of left female breast (principal); Z17.0 Estrogen receptor positive status [ER+]; E11.42 Type 2 diabetes mellitus with diabetic polyneuropathy; E11.59 Type 2 diabetes mellitus with other circulatory complications; I25.10 Atherosclerotic heart disease of native coronary artery without angina pectoris; Z95.5 Presence of coronary angioplasty implant and graft; G89.29 Other chronic pain; M54.5 Low back pain; Z79.811 Long term (current) use of aromatase inhibitors
CPT/HCPCS: 99204

== ENCOUNTER 2021-04-18 09:20 | Outpatient (CLI) | payer MEDICAID, SELFPAY ==
[2021-04-18 10:16] LABS: Basophils # 0.1 10^3/uL (0.0-0.1); Basophils % 0.8 %; Eosinophils # 0.1 10^3/uL (0.0-0.8); Eosinophils % 1.5 %; Hematocrit 46.7 % (37.0-47.0); Lymphocytes # 2.5 10^3/uL (0.8-4.8); Lymphocytes % 29.3 %; Mean Corpuscular HGB Conc 32.1 g/dL (30.0-36.0); Mean Corpuscular Hemoglobin 30.7 pg (28.0-34.0); Mean Corpuscular Volume 95.5 fL (81-99); Mean Platelet Volume 9.9 fL (7.4-10.4); Monocytes # 0.7 10^3/uL (0.2-0.9); Monocytes % 7.9 %; Neutrophils # 5.02 10^3/uL (1.8-7.7); Neutrophils % 59.9 %; Nucleated Red Blood Cells % 0 %; Platelet Count 243 10^3/cmm (130-400); Red Blood Count 4.89 10^6/uL (4.1-5.3); Red Cell Distribution Width 15.3 % (12.1-15.1); White Blood Count 8.4 10^3/uL (4.0-10.0)
[2021-04-18 10:39] LABS: Alanine Aminotransferase 15 U/L (0-33); Albumin Level 3.7 g/dL (3.5-5.2); Alkaline Phosphatase 141 IU/L (35-105); Anion Gap 12.1 (5-19); Aspartate Amino Transferase 16 U/L (0-32); Blood Urea Nitrogen 8 mg/dL (6-20); Calcium 8.9 mg/dL (8.5-10.5); Carbon Dioxide 31 mmol/L (22-29); Chloride 98 mmol/L (98-107); Globulin 2.8 g/dL (1.3-4.6); Glomerular Filtration Rate 102.7 mL/min (90-130); Glucose 108 mg/dL (65-115); Osmolality Calculated 283 mOsm/kg (285-295); Potassium 4.1 mmol/L (3.5-5.1); Sodium 137 mmol/L (136-145); Total Bilirubin 0.3 mg/dL (0.15-1.2); Total Protein 6.5 g/dL (6.6-8.7)
== END 2021-04-18 09:21 | disposition home or self-care (01) ==
LOC: ONCMED 09:23
PROVIDERS: PCP Registered Nurse; Visit Provider Internal Medicine Hematology & Oncology
DX: C50.812 Malignant neoplasm of overlapping sites of left female breast (principal); Z79.811 Long term (current) use of aromatase inhibitors; Z17.0 Estrogen receptor positive status [ER+]; Z90.12 Acquired absence of left breast and nipple; E11.9 Type 2 diabetes mellitus without complications; G62.89 Other specified polyneuropathies; M54.89 Other dorsalgia
CPT/HCPCS: 36415; 80053; 85025

== ENCOUNTER 2021-04-19 05:58 | Outpatient (CLI) | payer MEDICAID, SELFPAY ==
--- NOTE | 2021-04-19 14:37 | ONC FU_ITS ---
Dr. Patrick follow up note Patient: Coby Pierce Unit #: [id number]: [id number] Dicatated By: Jaret Patrick M.D.Date of Visit:Apr 19, 2021 Onc Med Follow-up/Prog Note History of Present Illness: Mr. Coby Pierce, is a 60-year-old female with history of stage IIb, T2N1A, ER/CO positive, HER-2/princess negative invasive ductal adenocarcinoma status post left mastectomy done on June 19, 2016 which showed invasive ductal carcinoma grade 2, 2.7 cm with clear surgical margin, DCIS was present with negative margins, 2 out of 4 lymph node +,1 in the axillary 1 sentinel,, ER 99% positive CO 13% positive Ki-67 42%, Oncotype returned intermediate with recurrence score of 25, postsurgically she developed infected postoperative seroma, wound infection and slight dehiscence, patient was offered adjuvant chemotherapy but as per medical record patient declined patient was also offered radiation therapy and she declined that too, patient was confirmed and postmenopausal both biochemically moreover as per patient the last time she had her menses Was in 2012, On September 12, 2016 patient was started on Arimidex along with vitamin D and calcium supplement. Her past medical history significant for coronary artery disease status post MS in 2002, possible cardiac arrest, no angioplasty or stent, history of CVA but as per medical oncology note there was no finding of CVA on her imaging done for stroke in November 2015. Hyperlipidemia, diabetes, peripheral neuropathy, history of epilepsy by report, neurology evaluation done in November 2015 was questioning these and considering psychosomatic component. COPD Patient has moved to [place] and now here to establish her care, recently on January 17, 2021 she underwent mammogram which was BI-RADS 1, negative and also underwent ultrasound left chest on February 02, 2021 which showed enlarged lymph node in left axilla measuring 2.4 x 1.9 x 0.9 cm, repeat ultrasound left chest wall done on March 12, 2021 showed no appreciable soft tissue mass in the left chest wall at the mastectomy site, no change since February 02, 2021 and there are small benign appearing lymph nodes at the mastectomy site no interval change because of lower extremities edema, she underwent venous Doppler study of left leg on March 12, 2020 which showed no evidence of DVT Patient denies any specific complaints, no fever chills, no nausea or vomiting, no diarrhea or constipation, no new bony pains or chronic back pain and left chest wall/axilla pain/discomfort also complaining of weight gain but no night sweats no hot flashes tolerating Arimidex well otherwise and she is also concerned about persistent lymph nodes in her left axilla seen on ultrasound left chest wall Follow-up CT PET scan done on March 31, 2021 showed status post left mastectomy, left axillary lymph nodes are radiographically benign and FDG negative. Right breast uptake is entirely unremarkable. Minimal inflammatory activity is present in the radiographically benign right axillary lymph node no evidence of osseous metastatic disease or distant mets Came for follow-up, denies any specific complaints except chronic back pain and anterior chest wall discomfort which is chronic in nature, no fever chills, no nausea or vomiting, no diarrhea constipation, occasionally hot flashes otherwise tolerating Arimidex well along with vitamin D and calcium Medications: Acetaminophen Extra Strength Tablet Oral, Albuterol Sulfate Aerosol Powder, Breath Activated Inhalation, Amitriptyline HCl Tablet Oral, Anastrozole Tablet Oral, Aspirin 81 Tablet, chewable Oral, Atorvastatin Calcium Tablet Oral, Azelastine HCl Solution Nasal, Baclofen Tablet Oral, Brexpiprazole Tablet Oral, Calan SR Tablet, controlled release Oral, Ronan-Carb Forte Tablet Oral, CeleXA Tablet Oral, Claritin Tablet Oral, Dexilant Capsule Delayed Release Oral, Dulera Aerosol Inhalation, Folic Acid Tablet Oral, Furosemide Tablet Oral, Gabapentin Tablet Oral, HYDROcodone-Acetaminophen Tablet Oral, Ipratropium-Albuterol Solution Inhalation, Isosorbide Mononitrate ER Tablet SR 24 HR Oral, Keppra Tablet Oral, K-Tab Tablet, controlled release Oral, Lomotil Tablet Oral, Loprox Suspension Topical, Maxalt Tablet Oral, Meclizine HCl Tablet, chewable Oral, Nystatin Powder Topical, Ondansetron Tablet Dispersable Oral, Oxybutynin Chloride ER Tablet SR 24 HR Oral, Pantoprazole Sodium Tablet, enteric coated Oral, Pataday Solution Ophthalmic, Promethazine HCl Suppository Rectal, traZODone HCl Tablet Oral, Vitamin D2 Tablet Oral Allergies: Bee Venom, Cimetidine, Dicyclomine HCl, Erythromycin, Ibuprofen, Nicotine, predniSONE, and Varenicline Tartrate. Review of Systems: Review of Systems is not available for this patient. Vital Signs: Performed on Apr 19, 2021 13:33 Height - 63.00 in Weight - 198.4 lbs (LOW) BSA - 1.93 sq.m BMI - 35.15 (HIGH) Temperature - 96.4 F (LOW) Pulse - 75 /min Respiration - 18 /min BP - 116/74 mm(hg) O2 Sat - 96 % Pain - 7 Fatigue - 8 Performance Status: 0 - Fully active, able to carry on all predisease activities without restrictions. (ECOG) Physical Examination: Respiratory - .Poor air entry otherwise clear, Cardiovascular - Regular rate and rhythm of heart, Gastrointestinal - Soft, bowel sounds present, Extremities - No visible edema or rash. Lab/Imaging: Most recent lab results are not available for this patient. Impression: Stage IIb, ER/CO, HER-2/princess negative invasive ductal adenocarcinoma status post left mastectomy with sentinel lymph node done on June 19, 2016, final pathology report confirmed invasive ductal carcinoma grade 2, ER 99% positive CO 13% positive Ki-67 42%, HER-2/princess negative Oncotype DX intermediate at 25, postop period was complicated by chest wound infection As per medical record patient denied recommended adjuvant chemotherapy and radiation therapy but opted for hormonal therapy with Arimidex which was started in August 2016 for 5 years History of coronary artery disease, MS in 2002, possible cardiac arrest, no angioplasty or stent History of CVA but diagnosis was somewhat unclear, patient had imaging done in November 2015 showed no evidence of stroke History of epilepsy by patient report, neuro consult done in November 2015 was questioning these findings and there was a concern regarding psychosomatic component. Peripheral neuropathy Diabetes mellitus Chronic back pain Follow-up CT PET scan done on March 31, 2021 showed no evidence of recurrence of disease Plan: Discussed with patient regarding her labs white blood count 8.4 hemoglobin 15 mercury 46.7 platelets 243,000 CMP within normal limits and follow-up CT PET scan done on March 31, 2021 shows no evidence of recurrence of disease Clinically, patient doing well with no signs symptom suggestive of recurrence of disease except chronic low back pain and anterior chest wall discomfort which could be musculoskeletal as PET scan showed no evidence of bone mets. She will continue with Arimidex 1 mg p.o. daily and she will complete 5 years of hormonal therapy in August 2021. Thus she will return to clinic in August 2021 with CBC CMP Patient was advised to quit smoking and was offered any assistance she may need. Signed By: Jaret Patrick M.D. <<Signature on File>>
== END 2021-04-19 05:59 | disposition home or self-care (01) ==
LOC: ONCMED 06:04
PROVIDERS: PCP Registered Nurse; Visit Provider Internal Medicine Hematology & Oncology
DX: C50.812 Malignant neoplasm of overlapping sites of left female breast (principal); Z17.0 Estrogen receptor positive status [ER+]; Z79.811 Long term (current) use of aromatase inhibitors; I25.2 Old myocardial infarction; G62.9 Polyneuropathy, unspecified; E11.9 Type 2 diabetes mellitus without complications; G89.29 Other chronic pain; Z90.11 Acquired absence of right breast and nipple
CPT/HCPCS: 99214

== ENCOUNTER 2021-05-25 12:53 | Outpatient (CLI) | payer MEDICAID, SELFPAY ==
--- NOTE | 2021-05-25 12:59 | XR_ITS ---
WS: [id number] LUMBAR SPINE TECHNIQUE: 3 views of the lumbar spine CLINICAL INFORMATION: NEUROPATHY OF LEFT LOWER EXTREMITY COMPARISON: None. FINDINGS: Five [id number]-[id number] lumbar vertebral bodies. Disc space heights are well preserved. No compression f ractures. No visualized pars defects. No spondylolisthesis. Visualized sacroiliac joints are normal. Normal visualized soft tissues. Partially visualized bowel gas pattern is normal. XR/XR lumbar spine 2-3V* [id number] IMPRESSION: Normal lumbar spine.
== END 2021-05-25 12:54 | disposition home or self-care (01) ==
LOC: RADWPI 12:58
PROVIDERS: PCP Registered Nurse; Visit Provider Registered Nurse
DX: G57.92 Unspecified mononeuropathy of left lower limb (principal); Z91.81 History of falling
CPT/HCPCS: 72100

== ENCOUNTER 2021-08-22 13:54 | Outpatient (CLI) | payer MEDICAID, SELFPAY ==
[2021-08-22 14:48] LABS: Basophils # 0.1 10^3/uL (0.0-0.1); Basophils % 0.6 %; Eosinophils # 0.2 10^3/uL (0.0-0.8); Eosinophils % 1.8 %; Hematocrit 44.9 % (37.0-47.0); Hemoglobin 14.9 g/dL (11.5-15.3); Lymphocytes # 2.4 10^3/uL (0.8-4.8); Lymphocytes % 25.3 %; Mean Corpuscular HGB Conc 33.2 g/dL (30.0-36.0); Mean Corpuscular Hemoglobin 30.4 pg (28.0-34.0); Mean Corpuscular Volume 91.6 fl (81-99); Mean Platelet Volume 9.5 fL (7.4-10.4); Monocytes # 0.7 10^3/uL (0.2-0.9); Monocytes % 6.7 %; Neutrophils # 6.28 10^3/uL (1.8-7.7); Neutrophils % 65.3 %; Nucleated Red Blood Cells % 0 %; Platelet Count 239 10^3/cmm (130-400); White Blood Count 9.6 10^3/uL (4.0-10.0)
[2021-08-22 15:15] LABS: Alanine Aminotransferase 14 U/L (0-33); Albumin Level 3.7 g/dL (3.5-5.2); Alkaline Phosphatase 89 IU/L (35-105); Aspartate Amino Transferase 17 U/L (0-32); Blood Urea Nitrogen 7 mg/dL (6-20); Calcium 9.1 mg/dL (8.5-10.5); Carbon Dioxide 28 mmol/L (22-29); Chloride 100 mmol/L (98-107); Globulin 3.3 g/dL (1.3-4.6); Glomerular Filtration Rate 85.9 mL/min (90-130); Glucose 80 mg/dL (65-115); Osmolality Calculated 285 mOsm/kg (285-295); Sodium 139 mmol/L (136-145); Total Bilirubin 0.3 mg/dL (0.15-1.2)
[2021-08-22 15:32] LABS: Anion Gap 14.7 (5-19); Potassium 3.7 mmol/L (3.5-5.1)
== END 2021-08-22 13:55 | disposition home or self-care (01) ==
LOC: ONCMED 13:55
PROVIDERS: PCP Registered Nurse; Visit Provider Internal Medicine Hematology & Oncology
DX: C50.912 Malignant neoplasm of unspecified site of left female breast (principal); Z17.0 Estrogen receptor positive status [ER+]
CPT/HCPCS: 36415; 80053; 85025

== ENCOUNTER 2021-09-09 23:38 | Inpatient (IN) | payer MEDICAID, SELFPAY ==
[2021-09-09 23:38] VITALS: PULSE 0; RESP 0; BMI 44.2
--- NOTE | 2021-09-09 23:53 | XRR_ITS ---
PROCEDURE INFORMATION: Exam: XR Chest Exam date and time: 09/09/2021 11:53 PM Age: 60 years old Clinical indication: Device placement; Ett placement (vent status); Patient HX: Check et and og placement S/P code blue. ; Additional info: Cpr TECHNIQUE: Imaging protocol: XR of the chest. Views: 1 view. COMPARISON: CR XR chest 1V portable [id number] 11/13/2020 10:35 AM FINDINGS: Tubes, catheters and devices: The endotracheal tube is appropriately positioned in the distal thoracic trachea with the tip above the benjamín. The orogastric tube is appropriately positioned with the tip in the stomach, well beyond the diaphragmatic hiatus. Lungs: ill-defined consolidation in the right lower lung. Pleural spaces: There is no pleural effusion or pneumothorax. Heart/Mediastinum: There is mild enlargement of the cardiac silhouette. Bones/joints: Bones are unremarkable. XR/XR chest 1V portable [id number] IMPRESSION: 1. Consolidation in the lower right lung. Possible aspiration or infection. 2. Satisfactory endotracheal and orogastric tube positions. Radiation Dose CTDIVOL = (mGy): DLP = (mGy-cm)
[2021-09-09 23:58] LABS: Basophils # 0.1 10^3/uL (0.0-0.1); Basophils % 1.1 %; Eosinophils % 0.1 %; Hematocrit 44.1 % (37.0-47.0); Hemoglobin 12.8 g/dL (11.5-15.3); Lymphocytes # 2.8 10^3/uL (0.8-4.8); Mean Corpuscular Hemoglobin 29.9 pg (28.0-34.0); Mean Platelet Volume 10.9 fL (7.4-10.4); Monocytes # 1.3 10^3/uL (0.2-0.9); Monocytes % 13.4 %; Neutrophils # 5.14 10^3/uL (1.8-7.7); Nucleated Red Blood Cells # 0.7 /100WBC; Nucleated Red Blood Cells % 7.8 %; Platelet Count 179 10^3/cmm (130-400); Red Blood Count 4.28 10^6/uL (4.1-5.3); Red Cell Distribution Width 17.2 % (12.1-15.1); White Blood Count 9.5 10^3/uL (4.0-10.0)
[2021-09-09 23:59] VITALS: BP 120/60; PULSE 121; RESP 19
[2021-09-10] VITALS (53 sets, daily range): BP systolic 51–126; BP diastolic 36–88; PULSE 90–115; RESP 11–26; TEMP 38.1–38.9; O2SAT 81–96
--- NOTE | 2021-09-10 00:06 | PC.NURSE ---
epi drip started at 4 mcg/min
[2021-09-10] MEDS: EPINEPHrine 2.5 MG in sodium chloride 0.9% 250 ML 24.24 MG IV (00:07)
--- NOTE | 2021-09-10 00:14 | PC.NURSE ---
Staff have been unable to contact pt's family yet, after multiple attempts
[2021-09-10 00:15] LABS: Arterial Blood Gas Hematocrit 38.9 % (37-47); Base Excess ABG -9.2 mmol/L (-2.0-2.0); Blood Gas Allen Test Pos; Blood Gas Sample Site Radial, left; Blood Gas Sample Type Arterial; Blood Gas Tidal Volume 0.45; HCO3 ABG 21.3 mmol/L (22-26); Oxygen Device VENT; PO2 ABG 68.2 mmHg (80.0-100.0)
[2021-09-10 00:16] LABS: ABG PCO2 68.5 mmHg (35-45)
--- NOTE | 2021-09-10 00:17 | PC.NURSE ---
CODE Flowsheet 23:37 - arrived in room from EMS. CPR in progress 23:39 - Epi 23:40 - Pulse Check; Asystole 23:42 - Epi/ Intubate/ Asystole 23:43 - Pulse Check; asystole. Bicarb, FSBS 125 23:45 - Pulse Check; Asystole, Epi 23:46 - Narcan 1.6 mg 23:47 - Pulse Check; Asystole 23:48 - Epi, Pupils fixed/dilated 23:49 - Pulse Check - PEA 23:50 - Bicarb 23:51 - Pulse check; ROSC, Sinus Tach 115 23:53 - 114/95, hr 130, 85% BVM 23:54 - EKG 23:58 - Epi GTT @ 4
[2021-09-10 00:20] LABS: Troponin(5th) Baseline 168 ng/L (0-10)
--- NOTE | 2021-09-10 00:27 | XRR_ITS ---
PROCEDURE INFORMATION: Exam: XR Chest Exam date and time: 09/10/2021 12:27 AM Age: 60 years old Clinical indication: Device placement; Picc; Additional info: Central line placement TECHNIQUE: Imaging protocol: XR of the chest. Views: 1 view. COMPARISON: 1. CR (CHEST, ) 2021-09-09 23:56 2. CR XR chest 1V portable [id number] 2020-11-13 10:35 3. CR XR chest 2V* [id number] 2020-10-23 16:51 4. CR XR chest 1V portable [id number] 2020-02-07 15:35 FINDINGS: Tubes, catheters and devices: Endotracheal tube tip in mid trachea. Right IJ line tip in the mid right atrium, consider pulling back approximately 5-6 cm. Miscellaneous catheter overlapping the right shoulder. Cutaneous pacer over the heart. Lungs: Bilateral lower lung opacities and retrocardiac opacity are unchanged. Pleural spaces: Unremarkable. No pleural effusion. No pneumothorax. Heart/Mediastinum: Cardiac enlargement. Bones/joints: Unremarkable. XR/XR chest 1V portable [id number] IMPRESSION: 1. Right IJ line tip in the mid right atrium, consider pulling back approximately 5-6 cm. 2. Cardiac enlargement. 3. Bilateral lower lung opacities and retrocardiac opacity are unchanged. Radiation Dose CTDIVOL = (mGy): DLP = (mGy-cm)
[2021-09-10 00:29] LABS: INR 1.43 (0.8-1.2)
[2021-09-10 00:29] LABS: Alanine Aminotransferase 217 U/L (0-33); Alkaline Phosphatase 69 IU/L (35-105); Blood Urea Nitrogen 11 mg/dL (6-20); Calcium 8.1 mg/dL (8.5-10.5); Carbon Dioxide 22 mmol/L (22-29); Chloride 99 mmol/L (98-107); Globulin 2.5 g/dL (1.3-4.6); Glomerular Filtration Rate 30.9 mL/min (90-130); Glucose 128 mg/dL (65-115); NT Pro B Type Natriuretic Pept 11896 pg/mL (0-125); Osmolality Calculated 293 mOsm/kg (285-295); Sodium 141 mmol/L (136-145); Total Bilirubin 0.7 mg/dL (0.15-1.2); Total Protein 5.5 g/dL (6.6-8.7)
[2021-09-10 00:30] LABS: Partial Thromboplastin Time 34.7 SECONDS (23.9-36.7)
[2021-09-10 00:31] LABS: Add Urine Microscopic? YES; Bilirubin Urine Neg (Negative); Blood Urine 2+ (Negative); Glucose Urine UA Norm (Normal); Ketones Urine Negative (Negative); Leukocyte Esterase Urine Negative (Negative); Nitrate Urine Negative (Negative); Protein Urine Neg (Negative); Specific Gravity, Urine 1.025 (1.005-1.030); Urine Appearance Clear (CLEAR); Urine Color Yellow (Yellow); Urobilinogen Urine Norm (Negative); pH Urine 5 (5-7)
[2021-09-10 00:32] LABS: Anion Gap 25.4 (5-19); Aspartate Amino Transferase 469 U/L (0-32); Potassium 5.4 mmol/L (3.5-5.1)
[2021-09-10 00:41] LABS: Amphetamines Screen Urine Negative (Negative); Barbiturates Screen Urine Negative (Negative); Benzodiazepines Screen Urine Negative (Negative); Cocaine Screen Urine Negative (Negative); Opiate Screen Urine Positive (Negative); PCP Screen Urine Negative (Negative); THC Screen Urine Negative (Negative)
[2021-09-10 00:44] LABS: Lactate (Lactic Acid level) 10.9 mmol/L (0.5-2.2)
[2021-09-10 00:44] LABS: Creatine Phosphokinase 5797 U/L (26-192)
[2021-09-10] MEDS: acetaminophen 650 mg/20.3 mL UDC PO (00:54)
[2021-09-10 00:55] LABS: Add Urine Culture? No; Amorphous Sediment Urine 1+ /hpf; Bacteria Urine 1+ /hpf; Mucus Urine 2+ /hpf; Squamous Epithelial Cell Urine 15-25 /hpf (0-5); WBC Urine 0-4 /hpf (0-5)
--- NOTE | 2021-09-10 00:55 | CTR_ITS ---
PROCEDURE INFORMATION: Exam: CTA Chest With Contrast Exam date and time: 09/10/2021 12:55 AM Age: 60 years old Clinical indication: Chest wall pain; Additional info: Chest pain, Dr. Hernández TECHNIQUE: Imaging protocol: Computed tomographic angiography of the chest with contrast. 3D rendering (Not supervised by radiologist): MIP and/or 3D reconstructed images were created by the technologist. Radiation optimization: All CT scans at this facility use at least one of these dose optimization techniques: automated exposure control; mA and/or kV adjustment per patient size (includes targeted exams where dose is matched to clinical indication); or iterative reconstruction. Contrast material: OMNI 350; Contrast volume: 95 ml; Contrast route: INTRAVENOUS (IV); COMPARISON: CR (CHEST, ) 09/10/2021 12:42 AM RADIATION DOSE METRICS: Total DLP (mGy-cm): 560.83 FINDINGS: Tubes, catheters and devices: Endotracheal tube is in satisfactory position. Feeding tube is in satisfactory position. Pulmonary arteries: Normal. No pulmonary emboli. Aorta: Unremarkable. No aortic aneurysm. No aortic dissection. Lungs: There is near complete consolidation of the right lower lobe and patchy airspace opacities scattered throughout both lungs, consistent with multifocal pneumonia. Pleural spaces: Unremarkable. No pneumothorax. No pleural effusion. Heart: Mildly enlarged heart. No pericardial effusion identified. Lymph nodes: Unremarkable. No enlarged lymph nodes. Liver: There is nonspecific hypodense lesions scattered throughout the liver, the largest in the left hepatic lobe measuring approximately 2.5 cm. The liver is diffusely decreased in density, compatible with hepatic steatosis. Gallbladder and bile ducts: The gallbladder demonstrates wall thickening and stranding of the surrounding fat, highly concerning for acute cholecystitis. No radiopaque gallstone identified. No intra or extrahepatic biliary ductal dilatation seen. Bones/joints: Degenerative changes of the spine seen. Soft tissues: Unremarkable. CT/CT angio chest PE protcl [id number] IMPRESSION: 1. Multifocal pneumonia with near complete consolidation of the right lower lobe. 2. Inflammatory changes of the gallbladder, concerning for acute cholecystitis. 3. Multiple nonspecific hepatic hypodense lesions. Further evaluation with contrast enhanced abdomen MRI is recommended. Radiation Dose CTDIVOL = (mGy): DLP = 560.83 (mGy-cm)
--- NOTE | 2021-09-10 00:55 | CTR_ITS ---
PROCEDURE INFORMATION: Exam: CT Head Without Contrast Exam date and time: 09/10/2021 12:55 AM Age: 60 years old Clinical indication: Altered mental status/memory loss; Additional info: Unresponsive TECHNIQUE: Imaging protocol: Computed tomography of the head without contrast. Radiation optimization: All CT scans at this facility use at least one of these dose optimization techniques: automated exposure control; mA and/or kV adjustment per patient size (includes targeted exams where dose is matched to clinical indication); or iterative reconstruction. COMPARISON: 1. CT head wo con* [id number] 2019-03-31 11:[address] head wo con* [id number] 2019-02-24 18:16 RADIATION DOSE METRICS: Total DLP (mGy-cm): 853.17 FINDINGS: Brain: Robust global brain volume with some questionable subtle loss of cole-white differentiation, correlate for cerebral edema, or hypoxic ischemic mild encephalopathy. Cerebral ventricles: No ventriculomegaly. Paranasal sinuses: Visualized sinuses are unremarkable. No fluid levels. Mastoid air cells: Visualized mastoid air cells are well aerated. Bones/joints: Unremarkable. No acute fracture. Soft tissues: Unremarkable. CT/CT head wo con* [id number] IMPRESSION: Robust global brain volume with some questionable subtle loss of cole-white differentiation, correlate for cerebral edema, or hypoxic ischemic mild encephalopathy. Although, could be within normal limits given motion. Radiation Dose CTDIVOL = (mGy): DLP = 853.17 (mGy-cm)
--- NOTE | 2021-09-10 00:59 | PC.NURSE ---
liquid tylenol given per OG tube
[2021-09-10 01:11] LABS: Glucose Point of Care 125 mg/dL (70-110)
--- NOTE | 2021-09-10 01:11 | W.ED.CPR ---
HPI - CPR General: Chief Complaint: Cardiac Arrest/CPR Stated Complaint: unresponsive Time Seen by Provider: 09/09/21 23:52 History of Present Illness: HPI narrative: 60-year-old female, evidently with a history of heart failure, presents unresponsive with no pulses. EMS was called, and the had stated that she had been in bed for a couple of days. She had evidently taken some of his oxycodone. She was found unresponsive by EMS, with gurgling respirations, but with a pulse, blood pressure, and heart rate in the 110s. She was not breathing well, and her oxygen saturations were quite low. This was despite supplemental oxygen. Since she was not protecting her airway at this point, RSI was attempted in the field, and failed. I gel LMA was placed with chest rise. The patient maintained a pulse until arriving at the hospital, when she suddenly lost pulses. Chest compressions were started immediately. We continued to provide bag valve respirations through the eye gel to the first pulse check, which revealed asystole on the monitor, and epinephrine was given. The patient was intubated at that point MD complaint: found unresponsive Onset (ago): day(s) Timing confirmed by: spouse Place: home Initial findings in the field: unresponsive, good pulses and sinus rhythm (tachycardia. initially. asystole on arrival) Associated injuries: No Associated symptoms: other Treatments prior to arrival: BMV, other airway device and chest compressions Review of Systems General: Reports: ROS unobtainable due to medical condition [facility] ED PFSH: Medical History (Updated 09/10/21 @ 02:31 by Barbie Hernández MD) Bleeding per rectum Calculus of kidney Chest pain Congestive heart failure grade 1 diastolic dysfunction, LVEF 60% COPD (chronic obstructive pulmonary disease) CVA (cerebrovascular accident) received TPA at [facility], 2018 Cystitis Gross hematuria History of drug abuse used methamphetamine, and alcohol IBS (irritable bowel syndrome) Kidney stone Seizure disorder Sleep apnea Urinary retention Surgical History (Updated 09/10/21 @ 02:23 by Barbie Hernández MD) H/O tubal ligation History of colonoscopy with polypectomy History of esophagogastroduodenoscopy (EGD) History of nasal surgery S/P cataract surgery S/P left mastectomy Family History Grandfather CAD (coronary artery disease) Cancer Clotting disorder Family history of premature coronary artery disease Hyperlipidemia Hypertension Lung disease Grandmother CAD (coronary artery disease) Cancer Diabetes Family history of premature coronary artery disease Hyperlipidemia Hypertension Lung disease Family/Other CAD (coronary artery disease) Clotting disorder Diabetes Family history of premature coronary artery disease Hyperlipidemia Hypertension Lung disease Stroke Father CAD (coronary artery disease) Cancer Family history of premature coronary artery disease Mother CAD (coronary artery disease) Cancer Family history of premature coronary artery disease Lung disease Brother CAD (coronary artery disease) Cancer Denies family history of Dementia Psychiatric illness Chronic kidney disease (CKD) Suicide Anesthesia complication Bleeding disorder Social History Smoking and tobacco status: current every day smoker cigarettes Packs smoked per day: 0.5 Alcohol intake: never Marital status: Physical Exam Const: EXAM LIMITATIONS: altered mental status and other limitations ORIENTATION/CONSCIOUSNESS: Yes Other orientation findings (unresponsive) HENMT: COMMON NORMALS: normocephalic and atraumatic HEAD & SCALP: normocephalic and atraumatic Eye: PUPIL: Yes Dilated pupils and Yes Fixed pupils Chest: COMMONS NORMALS: normal inspection of the chest Resp: EFFORT & INSPECTION: Yes other (no spontaneous respiration) AUSCULTATION: rales Cardio: PERIPHERAL PULSES: femoral pulses not present OTHER: no pulse GI: INSPECTION: Yes abdominal distension Extremity: GENERAL: Yes cyanosis Neuro: JAVIER COMA SCALE: document GCS findings [place] coma scale eye opening: None Javier coma scale verbal response: None [place] coma scale motor response: None [place] coma scale total score: 3 Procedures Central Line Placement Right IJ: Time Out Performed: No Patient Placed on Monitor/Pulse Ox: Yes MD Prep: mask and gloves Central Line Prep: Chlorhexidine scrub Local Anesthetic: lidocaine 1% Amount of anesthesia used (mL): 2 Ultrasound Used for Placement: Yes Central Line Lumen Inserted: triple Post Procedure: sutured in place, good blood return, all ports aspirated, flushed, capped and sterile dressing applied Post Procedure X-Ray: tip of catheter in good position Patient Tolerated Procedure: well and no complications Complications: none Intubation Time out performed: No sedative: none Laryngoscope: Alireza (4) ET Tube Size: 7.5 ET Tube Uncuffed: No Tube Secured Depth (cm): 20 Tube Secured Location: lips Tube Placement Confirmation: visualized tube passing through cords, equal breath sounds bilaterally and confirmation by capnometry Patient Tolerated Procedure: no complications Intubation Complications: none Course Consultations: Consultation #1: sylvia Vital Signs: Vital signs: Vital Signs Temperature 101.7 F H 09/10/21 02:40 Pulse Rate 92 09/10/21 04:36 Respiratory Rate 14 09/10/21 04:36 Blood Pressure 108/74 09/10/21 04:36 Pulse Oximetry 90 09/10/21 04:36 MDM - Cardiac Arrest/CPR MDM Narrative: Medical decision making narrative: 60-year-old lady arrived with CPR in progress. Asystole noted on the monitor at first pulse check, with no pulse epinephrine was given. LMA was pulled, and patient was intubated without complication. Patient was given a total of 4 mg of epinephrine, 2 Amps of bicarb, with ROSC following. Rhythm was sinus tachycardia in the 100s. Initial blood pressure was normotensive, however the next blood pressure was low. Epinephrine drip was started at that point, as well as a norepinephrine drip later. Central line was placed. The patient is expressing occasional agonal type respirations, and overbreathing the ventilator to some degree. She has otherwise shown no sign of higher function. Pupils remain fixed and dilated. CBC is normal. Creatinine is 1.7 which is a significant increase from prior creatinine. Potassium is mildly elevated at 5.4. Initial Trope is high. EKG postcode shows sinus tachycardia with significant ST depression anterior laterally, indicating subendocardial ischemia/injury from her period of asystole. Repeat EKG at 2 hours shows normalization of her ST depression. Her troponin did increase significantly. CT of the head with CTA of the chest is pending at this point. She will go to the ICU. Lab Data: Labs: Lab Results 09/09/21 09/09/21 09/09/21 23:44 23:50 23:50 WBC 9.5 10^3/uL 10^3/ uL (4.0-10.0) RBC 4.28 10^6/uL 10^6 /uL (4.1-5.3) Hgb 12.8 g/dL g/dL (11.5-15.3) Hct 44.1 % % (37.0-47.0) MCV 103.0 fl H fl (81-99) MCH 29.9 pg pg (28.0-34.0) MCHC 29.0 g/dL L g/dL (30.0-36.0) RDW 17.2 % H % (12.1-15.1) Plt Count 179 10^3/cmm 10^3 /cmm (130-400) MPV 10.9 fL H fL (7.4-10.4) Neut % (Auto) 54.0 % % Lymph % (Auto) 29.0 % % Collin % (Auto) 13.4 % % Eos % (Auto) 0.1 % % Baso % (Auto) 1.1 % % Neut # (Auto) 5.14 10^3/uL 10^3 /uL (1.8-7.7) Lymph # (Auto) 2.8 10^3/uL 10^3/ uL (0.8-4.8) Collin # (Auto) 1.3 10^3/uL H 10^ 3/uL (0.2-0.9) Eos # (Auto) 0.0 10^3/uL 10^3/ uL (0.0-0.8) Baso # (Auto) 0.1 10^3/uL 10^3/ uL (0.0-0.1) Nucleated RBC % (a uto) 7.8 % % Nucleated RBCs # 0.7 /100WBC /100W BC PT INR APTT Specimen Type Sample Site ABG pH ABG pCO2 ABG pO2 ABG HCO3 ABG Base Excess Wilfredo Test Hematocrit O2 Delivery Device Mechanical Rate FiO2 Tidal Volume PEEP Personal Attendant ID Sodium 141 mmol/L mmol/L (136-145) Potassium 5.4 mmol/L H mmol /L (3.5-5.1) Chloride 99 mmol/L mmol/L (98-107) Carbon Dioxide 22 mmol/L mmol/L (22-29) Anion Gap 25.4 H (5-19) BUN 11 mg/dL mg/dL (6-20) Creatinine 1.7 mg/dL H mg/dL (0.5-0.9) GFR Calculation 30.9 mL/min L mL/ min (90-130) Glucose 128 mg/dL H mg/dL (65-115) POC Glucose 125 mg/dL H mg/dL (70-110) Calculated Osmolal ity 293 mOsm/kg mOsm/ kg (285-295) Lactate Calcium 8.1 mg/dL L mg/dL (8.5-10.5) Total Bilirubin 0.7 mg/dL mg/dL (0.15-1.2) AST 469 U/L H U/L (0-32) ALT 217 U/L H U/L (0-33) Alkaline Phosphata se 69 IU/L IU/L (35-105) Creatine Kinase 5797 U/L H* U/L (26-192) Troponin T Baselin e Troponin T 120 Min [place] Troponin T NT-Pro-B Natriuret Pep 51584 pg/mL H pg/ mL (0-125) Total Protein 5.5 g/dL L g/dL (6.6-8.7) Albumin 3.0 g/dL L g/dL (3.5-5.2) Globulin 2.5 g/dL g/dL (1.3-4.6) Urine Color Urine Appearance Urine pH Ur Specific Gravit y Urine Protein Urine Glucose (UA) Urine Ketones Urine Blood Urine Nitrate Urine Bilirubin Urine Urobilinogen Ur Leukocyte Veronica ase Urine RBC Urine WBC Ur Squamous Epith Cells Amorphous Sediment Urine Bacteria Hyaline Casts Urine Mucus Salicylates Urine Opiates Scre en Acetaminophen Ur Barbiturates Sc reen Ur Phencyclidine S crn Ur Amphetamines Sc reen U Benzodiazepines Scrn Urine Cocaine Scre en U Marijuana (THC) Screen Ethyl Alcohol Hep Bs Antigen Hep Bs Antibody Hep B Core Total A b Hepatitis C Antibo dy Influenza Type A A g Influenza Type B A g SARS-CoV-2 Ag (Rap id) 09/09/21 09/09/21 09/09/21 23:50 23:50 23:54 WBC RBC Hgb Hct MCV MCH MCHC RDW Plt Count MPV Neut % (Auto) Lymph % (Auto) Collin % (Auto) Eos % (Auto) Baso % (Auto) Neut # (Auto) Lymph # (Auto) Collin # (Auto) Eos # (Auto) Baso # (Auto) Nucleated RBC % (a uto) Nucleated RBCs # PT INR APTT Specimen Type Arterial Sample Site Radial, left ABG pH 7.10 L* (7.35-7.45) ABG pCO2 68.5 mmHg H* mmHg (35-45) ABG pO2 68.2 mmHg L mmHg (80.0-100.0) ABG HCO3 21.3 mmol/L L mmo l/L (22-26) ABG Base Excess -9.2 mmol/L L mmo l/L (-2.0-2.0) Wilfredo Test Pos Hematocrit 38.9 % % (37-47) O2 Delivery Device Vent Mechanical Rate FiO2 100.0 % % Tidal Volume 0.45 PEEP 10.0 cmH20 cmH20 Personal Attendant ID [place] Sodium Potassium Chloride Carbon Dioxide Anion Gap BUN Creatinine GFR Calculation Glucose POC Glucose Calculated Osmolal ity Lactate Calcium Total Bilirubin AST ALT Alkaline Phosphata se Creatine Kinase Troponin T Baselin e 168 ng/L H* ng/L (0-10) Troponin T 120 Min [place] Troponin T NT-Pro-B Natriuret Pep Total Protein Albumin Globulin Urine Color Urine Appearance Urine pH Ur Specific Gravit y Urine Protein Urine Glucose (UA) Urine Ketones Urine Blood Urine Nitrate Urine Bilirubin Urine Urobilinogen Ur Leukocyte Veronica ase Urine RBC Urine WBC Ur Squamous Epith Cells Amorphous Sediment Urine Bacteria Hyaline Casts Urine Mucus Salicylates < 0.3 mg/dL L mg/ dL (3-10) Urine Opiates Scre en Acetaminophen < 5.0 ug/mL L ug/ mL (10-30) Ur Barbiturates Sc reen Ur Phencyclidine S crn Ur Amphetamines Sc reen U Benzodiazepines Scrn Urine Cocaine Scre en U Marijuana (THC) Screen Ethyl Alcohol < 10 mg/dL mg/dL (0-10) Hep Bs Antigen Hep Bs Antibody Hep B Core Total A b Hepatitis C Antibo dy Influenza Type A A g Influenza Type B A g SARS-CoV-2 Ag (Rap id) 09/10/21 09/10/21 09/10/21 00:12 00:12 00:12 WBC RBC Hgb Hct MCV MCH MCHC RDW Plt Count MPV Neut % (Auto) Lymph % (Auto) Collin % (Auto) Eos % (Auto) Baso % (Auto) Neut # (Auto) Lymph # (Auto) Collin # (Auto) Eos # (Auto) Baso # (Auto) Nucleated RBC % (a uto) Nucleated RBCs # PT 17.80 SECONDS H S ECONDS (12.1-14.9) INR 1.43 H (0.8-1.2) APTT 34.7 SECONDS SECO NDS (23.9-36.7) Specimen Type Sample Site ABG pH ABG pCO2 ABG pO2 ABG HCO3 ABG Base Excess Wilfredo Test Hematocrit O2 Delivery Device Mechanical Rate FiO2 Tidal Volume PEEP Personal Attendant ID Sodium Potassium Chloride Carbon Dioxide Anion Gap BUN Creatinine GFR Calculation Glucose POC Glucose Calculated Osmolal ity Lactate 10.9 mmol/L H* mm ol/L (0.5-2.2) Calcium Total Bilirubin AST ALT Alkaline Phosphata se Creatine Kinase Troponin T Baselin e Troponin T 120 Min [place] Troponin T NT-Pro-B Natriuret Pep Total Protein Albumin Globulin Urine Color Urine Appearance Urine pH Ur Specific Gravit y Urine Protein Urine Glucose (UA) Urine Ketones Urine Blood Urine Nitrate Urine Bilirubin Urine Urobilinogen Ur Leukocyte Veronica ase Urine RBC Urine WBC Ur Squamous Epith Cells Amorphous Sediment Urine Bacteria Hyaline Casts Urine Mucus Salicylates Urine Opiates Scre en Acetaminophen Ur Barbiturates Sc reen Ur Phencyclidine S crn Ur Amphetamines Sc reen U Benzodiazepines Scrn Urine Cocaine Scre en U Marijuana (THC) Screen Ethyl Alcohol Hep Bs Antigen Non-reactive (Nonreactive) Hep Bs Antibody 3.5 L (11.5-1000) Hep B Core Total A b Non-reactive (Nonreactive) Hepatitis C Antibo dy Non-reactive (Nonreactive) Influenza Type A A g Influenza Type B A g SARS-CoV-2 Ag (Rap id) 09/10/21 09/10/21 09/10/21 00:20 00:20 00:27 WBC RBC Hgb Hct MCV MCH MCHC RDW Plt Count MPV Neut % (Auto) Lymph % (Auto) Collin % (Auto) Eos % (Auto) Baso % (Auto) Neut # (Auto) Lymph # (Auto) Collin # (Auto) Eos # (Auto) Baso # (Auto) Nucleated RBC % (a uto) Nucleated RBCs # PT INR APTT Specimen Type Sample Site ABG pH ABG pCO2 ABG pO2 ABG HCO3 ABG Base Excess Wilfredo Test Hematocrit O2 Delivery Device Mechanical Rate FiO2 Tidal Volume PEEP Personal Attendant ID Sodium Potassium Chloride Carbon Dioxide Anion Gap BUN Creatinine GFR Calculation Glucose POC Glucose Calculated Osmolal ity Lactate Calcium Total Bilirubin AST ALT Alkaline Phosphata se Creatine Kinase Troponin T Baselin e Troponin T 120 Min [place] Troponin T NT-Pro-B Natriuret Pep Total Protein Albumin Globulin Urine Color Yellow (Yellow) Urine Appearance Clear (CLEAR) Urine pH 5 (5-7) Ur Specific Gravit y 1.025 (1.005-1.030) Urine Protein Neg (Negative) Urine Glucose (UA) Norm (Normal) Urine Ketones Negative (Negative) Urine Blood 2+ H (Negative) Urine Nitrate Negative (Negative) Urine Bilirubin Neg (Negative) Urine Urobilinogen Norm mg/dL mg/dL (Negative) Ur Leukocyte Veronica ase Negative (Negative) Urine RBC 5-10 /hpf H /hpf (0-2) Urine WBC 0-4 /hpf H /hpf (0-5) Ur Squamous Epith Cells 15-25 /hpf H /hpf (0-5) Amorphous Sediment 1+ /hpf /hpf Urine Bacteria 1+ /hpf H /hpf (NONE) Hyaline Casts 10-15 /lpf H /lpf Urine Mucus 2+ /hpf /hpf Salicylates Urine Opiates Scre en Positive ng/mL H ng/mL (Negative) Acetaminophen Ur Barbiturates Sc reen Negative ng/mL ng /mL (Negative) Ur Phencyclidine S crn Negative ng/mL ng /mL (Negative) Ur Amphetamines Sc reen Negative ng/mL ng /mL (Negative) U Benzodiazepines Scrn Negative ng/mL ng /mL (Negative) Urine Cocaine Scre en Negative ng/mL ng /mL (Negative) U Marijuana (THC) Screen Negative ng/mL ng /mL (Negative) Ethyl Alcohol Hep Bs Antigen Hep Bs Antibody Hep B Core Total A b Hepatitis C Antibo dy Influenza Type A A g Influenza Type B A g SARS-CoV-2 Ag (Rap id) Negative (Negative) 09/10/21 09/10/21 09/10/21 02:02 02:20 03:09 WBC RBC Hgb Hct MCV MCH MCHC RDW Plt Count MPV Neut % (Auto) Lymph % (Auto) Collin % (Auto) Eos % (Auto) Baso % (Auto) Neut # (Auto) Lymph # (Auto) Collin # (Auto) Eos # (Auto) Baso # (Auto) Nucleated RBC % (a uto) Nucleated RBCs # PT INR APTT Specimen Type Arterial Sample Site Radial, right ABG pH ABG pCO2 48.4 mmHg H mmHg (35-45) ABG pO2 41.2 mmHg L mmHg (80.0-100.0) ABG HCO3 15.6 mmol/L L mmo l/L (22-26) ABG Base Excess -13.7 mmol/L L mm ol/L (-2.0-2.0) Wilfredo Test Pos Hematocrit 44.9 % % (37-47) O2 Delivery Device Vent Mechanical Rate 21.0 FiO2 100.0 % % Tidal Volume 0.42 PEEP 8.0 cmH20 cmH20 Personal Attendant ID Tamma Sodium Potassium Chloride Carbon Dioxide Anion Gap BUN Creatinine GFR Calculation Glucose POC Glucose Calculated Osmolal ity Lactate Calcium Total Bilirubin AST ALT Alkaline Phosphata se Creatine Kinase Troponin T Baselin e Troponin T 120 Min [place] 360.7 ng/L H ng/L (0-10) Delta Troponin T 192.7 ABS# H* ABS # (0-10) NT-Pro-B Natriuret Pep Total Protein Albumin Globulin Urine Color Urine Appearance Urine pH Ur Specific Gravit y Urine Protein Urine Glucose (UA) Urine Ketones Urine Blood Urine Nitrate Urine Bilirubin Urine Urobilinogen Ur Leukocyte Veronica ase Urine RBC Urine WBC Ur Squamous Epith Cells Amorphous Sediment Urine Bacteria Hyaline Casts Urine Mucus Salicylates Urine Opiates Scre en Acetaminophen Ur Barbiturates Sc reen Ur Phencyclidine S crn Ur Amphetamines Sc reen U Benzodiazepines Scrn Urine Cocaine Scre en U Marijuana (THC) Screen Ethyl Alcohol Hep Bs Antigen Hep Bs Antibody Hep B Core Total A b Hepatitis C Antibo dy Influenza Type A A g Negative (Negative) Influenza Type B A g Negative (Negative) SARS-CoV-2 Ag (Rap id) Critical Care Time Critical Care Time: Critical Care Time: Yes Total Critical Care Time: 45 Attestation: This case had a high probability of a clinically significant, sudden, or life threatening deterioration of this patient's condition which required my full and direct attention, intervention and personal management. This is independent of central line and intubation, and all other procedures. Discharge Plan Discharge Patient Disposition: Admitted As Inpatient Clinical Impression: Cardiac arrest Acute respiratory failure Qualifiers: Respiratory failure complication: hypoxia Qualified Code(s): J96.01 - Acute respiratory failure with hypoxia Condition: Critical Coding Level of Care Code ED Civil Manager for Yari Fwamy Exam Comprehensive
[2021-09-10 01:46] LABS: SARS Covid-2 Antigen Negative (Negative)
--- NOTE | 2021-09-10 01:53 | ECG_ITS ---
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 Measurements Intervals [place] Rate: 92 P: 17 SC: 152 QRS: 49 QRSD: 102 T: 43 QT: 409 QTc: 508 Interpretive Statements SINUS RHYTHM NONSPECIFIC T-WAVE ABNORMALITY Compared to ECG 03/20/2020 11:10:05 Possible ischemia no longer present T-wave abnormality still present Electronically Signed On 09-10-2021 23:52:47 CDT by Aicha Saavedra M.D. [email or web address]
--- NOTE | 2021-09-10 02:01 | USCV_ITS ---
Coby Pierce Age: 60 Gender: F : 1960 Exam Date: 09/10/2021 06:14 Ordering Phys: Barbie Hernández MD Technologist: Chela Danielle [place] [facility] [place] BP: 108 / 74 HR: 94 Rhythm: Sinus Technical Quality: Adequate MEASUREMENTS (Male / Female) Normal Values 2D ECHO LV Diastolic Diameter PLAX 4.0 cm 4.2 - 5.9 / 3.9 - 5.3 cm LV Systolic Diameter PLAX 3.0 cm IVS Diastolic Thickness 0.8 cm 0.6 - 1.0 / 0.6 - 0.9 cm IVS Systolic Thickness 1.1 cm LVPW Diastolic Thickness 1.0 cm 0.6 - 1.0 / 0.6 - 0.9 cm LVPW Systolic Thickness 1.2 cm LVOT Diameter 2.1 cm LV Ejection Fraction 2D Teich 48.6 % LV Ejection Fraction MOD 2C 37.7 % LV Ejection Fraction 2C AL 37.2 % LA Diameter 3.0 cm LA Width 3.7 cm LA Height 4.5 cm RA Width 3.1 cm RA Height 4.5 cm DOPPLER AV Peak Velocity 115.0 cm/s MV Area PHT 5.0 cm squared Mitral E to A Ratio 1.1 MV E' Velocity 27.5 cm/s Mitral E to MV E' Ratio 6.2 Mitral E to LV E' Lateral Ratio 6.0 Mitral E to LV E' Septal Ratio 6.5 TR Peak Velocity 207.0 cm/s TR Peak Gradient 17.1 mmHg FINDINGS Left Ventricle Normal left ventricular size. LV systolic function is moderate to severely reduced with EF of 30-35%. Moderate to severe global hypokinesis is noted Right Ventricle Not well visualized Right Atrium Not well visualized Left Atrium Not well visualized Mitral Valve Grossly normal. Mild mitral regurgitation Aortic Valve Grossly normal. No aortic stenosis. There is mild aortic regurgitation Tricuspid Valve Not well visualized Pulmonic Valve Not well visualized Pericardium Normal pericardium without effusion. Aorta Normal ascending aorta dimension. CONCLUSIONS Technically limited echocardiogram because of poor ultrasonic windows LV systolic function is moderate to severely reduced with EF of 30-35%. Moderate to severe global hypokinesis Mild mitral regurgitation Mild aortic regurgitation Compared to prior echocardiogram from 01/2020, LV systolic function has significantly decreased Jay Ocampo MD (Electronically Signed) Final Date: 10 September 2021 20:24 S
[2021-09-10] MEDS: sodium chloride 0.9% 1,000 ML 999 ML IV ×2 (02:02)
--- NOTE | 2021-09-10 02:07 | P.HP_ITS ---
Providers/Chief Complaint Admitting Physician: Barbie Hernández MD Primary Care Provider: Sravani Paul Chief Complaint: unresponsive History of Present Illness History per chart review and discussion with ER physician. Family's phone going to voicemail. Coby Pierce is a 60 year old female past medical history of congestive heart failure, hypertension, Prinzmetal angina, GERD, diabetic neuropathy , breast ca brought to the ER today and unresponsive state. Reportedly patient had been taking multiple doses of oxycodone at home over the past 2 days, had been lethargic, had been in bed, uncertain what her mentation was at this time. EMS was called today as she was poorly responsive, when EMS arrived she was noted to have labored breathing, heart rate of 110, reportedly sinus rhythm and normotensive. She was saturating in the 80s on room air, she was unable to be intubated due to difficult airway and had a LMA in place for transfer to the ER. Shortly upon ER arrival, patient became pulseless, asystole on monitor, CPR was started immediately, she had 4 rounds of chest compressions and epinephrine pushes. She had already received 2 mg of Narcan by EMS and re ceived additional Narcan after arrival to the hospital without any change in clinical status. She was intubated in the ER. At the time of my assessment patient is mechanically ventilated, saturating 93%, 100% FiO2. Her pupils are fixed and dilated, there is no corneal reflex, she is currently not on any sedation, does not respond to either verbal or painful stimulus. Blood pressure is 110/68 on 2 pressors-Levophed at 6 mics, epinephrine at 0.4. Labs notable for JESUSITA, creatinine 1.7, elevated troponin greater than 100, elevated CK~5000, transaminitis with deranged AST and ALT which could all be consistent with the postcode state. ABG shows respiratory acidosis. Review of her past cardiology notes showed that patient had been having on and off chest pain, dating back at least a year, stress test had been ordered on multiple occasions but not completed. 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 Review of Systems General: Reports: ROS unobtainable due to endotracheal tube Medications/Allergies Home Medications Medication Instructions Recorded Confirmed Last Taken Type amitriptyline 50 mg tablet 50 mg PO QDAY 12/02/19 06/27/21 1 Day Ago History ~03/19/20 anastrozole 1 mg tablet 1 mg PO QDAY 12/02/19 06/27/21 1 Day Ago History ~03/19/20 atorvastatin 80 mg tablet 80 mg PO QDAY 12/02/19 06/27/21 1 Day Ago History ~03/19/20 citalopram 40 mg tablet 40 mg PO QDAY 12/02/19 06/27/21 1 Day Ago History ~03/19/20 folic acid 400 mcg tablet 0.4 mg PO QDAY 12/02/19 06/27/21 1 Day Ago History ~03/19/20 levetiracetam 500 mg tablet 500 mg PO BID 12/02/19 06/27/21 1 Day Ago History ~03/19/20 loratadine 10 mg capsule 10 mg PO QDAY 12/02/19 06/27/21 1 Day Ago History ~03/19/20 nebulizers #1 each 12/02/19 06/27/21 Unknown History sodium chloride 0.65 % nasal spray 1 spray INTRANASAL ONCE 12/02/19 06/27/21 1 Day Ago History aerosol ~03/19/20 trazodone 100 mg tablet 100 mg PO QDAY 12/02/19 06/27/21 1 Day Ago History ~03/19/20 verapamil 120 mg 24 hr 120 mg PO QAM 12/02/19 06/27/21 1 Day Ago History capsule,extended release ~03/19/20 cholecalciferol (vitamin D3) 1,250 50,000 unit PO DIRECTED cap 12/21/19 06/27/21 1 Day Ago History mcg (50,000 unit) capsule ~03/19/20 promethazine 25 mg tablet 25 mg PO Q6H PRN 12/21/19 06/27/21 1 Day Ago History ~03/19/20 calcium carbonate [Calcium 500] 500 mg PO DAILY 02/07/20 06/27/21 1 Day Ago History ~03/19/20 epinephrine 0.3 mg/0.3 mL 0.3 mg IM Q10M PRN 03/06/20 06/27/21 Unknown History injection, auto-injector nystatin See Rx Instructions .ROUTE 03/17/20 06/27/21 1 Day Ago History .COMPLEX PRN ~03/19/20 promethazine [Phenadoz] 25 mg [place] DAILY PRN 03/17/20 06/27/21 1 Day Ago History ~03/19/20 pantoprazole 40 mg PO DAILY #30 tab 03/20/20 06/27/21 Unknown Rx albuterol sulfate 90 mcg/actuation 1 inh INHALATION Q4H PRN ea 10/23/20 06/27/21 Unknown History breath activated powder inhaler baclofen 10 mg tablet 5 mg PO TID tab 10/23/20 06/27/21 Unknown History ztcwpbovfh-hkoierfxnjgny-ahkrkkiw 1 cap PO Q8H PRN 10/23/20 06/27/21 Unknown History 50 mg-300 mg-40 mg capsule cyclobenzaprine 10 mg tablet 10 mg PO TID 10/23/20 06/27/21 Unknown History diphenoxylate-atropine 2.5 1 tab PO QID tab 10/23/20 06/27/21 Unknown History mg-0.025 mg tablet gabapentin 300 mg capsule 700 mg PO TID cap 10/23/20 06/27/21 Unknown History ondansetron HCl 4 mg tablet 4 mg PO Q6H PRN 10/23/20 06/27/21 Unknown History hydrocodone 5 mg-acetaminophen 325 1 tab PO Q6H PRN 2 Days #8 tab 10/31/20 06/27/21 Unknown Rx mg tablet levofloxacin 500 mg tablet 500 mg PO DAILY #14 tab 10/31/20 06/27/21 Unknown Rx phenazopyridine 200 mg tablet 200 mg PO TID #12 tab 10/31/20 06/27/21 Unknown Rx amoxicillin-pot clavulanate 1 tab PO BID #14 tab 11/13/20 06/27/21 Unknown Rx [Augmentin] potassium chloride 20 mEq See Rx Instructions .ROUTE 01/26/21 06/27/21 Unknown Rx tablet,extended release(part/cryst) .COMPLEX #270 tab tramadol 50 mg PO TID PRN #14 tab 02/24/21 06/27/21 Unknown Rx aspirin 81 mg tablet,delayed 81 mg PO QDAY #90 tab 03/27/21 06/27/21 Unknown Rx release isosorbide mononitrate 30 mg 30 mg PO BID #180 tab 06/04/21 06/27/21 Unknown Rx tablet,extended release 24 hr furosemide 40 mg tablet 40 mg PO DAILY #90 tab 06/05/21 06/27/21 Unknown Rx nitroglycerin 0.4 mg sublingual 0.4 mg SUBLINGUAL Q5M PRN #30 tab 08/08/21 Unknown Rx tablet Allergies Allergy/AdvReac Type Severity Reaction Status Date / Time ibuprofen Allergy Severe ALGY-Anaphy Verified 06/27/21 13:02 laxis cimetidine [From Tagamet] Allergy Mild vomiting Verified 06/27/21 13:02 doxycycline Allergy Mild vomiting Verified 06/27/21 13:02 nicotine Allergy Mild vomiting Verified 06/27/21 13:02 prednisone Allergy Mild vomiting Verified 06/27/21 13:02 dicyclomine Allergy ADR-Vomitin Verified 06/27/21 13:02 g erythromycin base Allergy ADR-Vomitin Verified 06/27/21 13:02 g PFSH Acute PFSH: Medical History (Updated 09/10/21 @ 02:31 by Barbie Hernández MD) Bleeding per rectum Calculus of kidney Chest pain Congestive heart failure grade 1 diastolic dysfunction, LVEF 60% COPD (chronic obstructive pulmonary disease) CVA (cerebrovascular accident) received TPA at [facility], 2018 Cystitis Gross hematuria History of drug abuse used methamphetamine, and alcohol IBS (irritable bowel syndrome) Kidney stone Seizure disorder Sleep apnea Urinary retention Surgical History (Updated 09/10/21 @ 02:23 by Barbie Hernández MD) H/O tubal ligation History of colonoscopy with polypectomy History of esophagogastroduodenoscopy (EGD) History of nasal surgery S/P cataract surgery S/P left mastectomy Family History Grandfather CAD (coronary artery disease) Cancer Clotting disorder Family history of premature coronary artery disease Hyperlipidemia Hypertension Lung disease Grandmother CAD (coronary artery disease) Cancer Diabetes Family history of premature coronary artery disease Hyperlipidemia Hypertension Lung disease Family/Other CAD (coronary artery disease) Clotting disorder Diabetes Family history of premature coronary artery disease Hyperlipidemia Hypertension Lung disease Stroke Father CAD (coronary artery disease) Cancer Family history of premature coronary artery disease Mother CAD (coronary artery disease) Cancer Family history of premature coronary artery disease Lung disease Brother CAD (coronary artery disease) Cancer Denies family history of Dementia Psychiatric illness Chronic kidney disease (CKD) Suicide Anesthesia complication Bleeding disorder Social History Smoking and tobacco status: current every day smoker cigarettes Packs smoked per day: 0.5 Alcohol intake: never Marital status: Vitals/I&O/Wt Last Vital Signs Temp 100.5 F H 09/10/21 01:25 Pulse 92 09/10/21 02:00 Resp 20 H 09/10/21 02:00 BP 112/75 09/10/21 02:00 Pulse Ox 95 09/10/21 01:56 09/09/21 09/09/21 09/10/21 14:59 22:59 06:59 Intake Total 2073.316 / 2073.316 Balance 2073.316 / 2073.316 Weight last 48 hrs Weight 113.398 kg Physical Exam Narrative: EXAM NARRATIVE: General: intubated, no response to verbal or painful stimulus HEENT: B/L pupils fixed and dilated, no corneal reflex Chest: Coarse crackles to auscultation B/L CVS: S1-S2 regular, no murmurs Abdomen: Soft,non distended, no organomegaly, bowel sounds present Neuro: no response to either verbal or painful stimulus Data : 09/09/21 23:50 09/09/21 23:50 A&P Assessment and plan (1) Cardiac arrest: Patient presenting today to the ER with cardiac arrest, asystole upon presentation Reportedly brought by EMS due to complaints of respiratory distress, altered mental status over the past 2 days.. Per reported history patient had been taking oxycodone at home therefore opiate overdose is certainly a possibility. U tox + opiates. No response to Narcan in field or in ER Cannot exclude an acute cardiac event such as an ME or massive PE at this time. She is status post CPR, 4 rounds of compressions and epinephrine given Currently MAP greater than 65 on 2 pressors, continue same, attempt to wean down on epinephrine CTA of the chest to evaluate for PE. Troponin baseline elevated greater than 100, though of note this is post code. Stat CT of the head to rule out intracranial bleeding. If CT head negative for bleeding, will start heparin infusion for possibility of NSTEMI versus PE. Continuing aspirin, statin Respiratory acidosis on ABG, patient currently intubated, 100% FiO2. Chest x-ray shows diffuse bilateral infiltrates which may be insurance verification representative of pulmonary edema from CHF, versus ARDS, possibility of infection cannot be excluded given that patient also is febrile. Empiric piperacillin tazobactam and vancomycin while undergoing sepsis evaluation. Stat blood cultures, UA, urine culture, Covid PCR, influenza antigen, MRSA PCR screen, urine Legionella and bacterial antigens. Lasix 40 mg IV, further dose based on urine output and response to treatment Past echocardiogram with grade 1 diastolic dysfunction, preserved EF. 2D echo ordered now to assess for any regional wall motion abnormalities, estimated EF and diastolic function. Home medication list includes Keppra, unknown if patient may have had a seizure and postictal state at home. Check Keppra level. Status: Acute (2) Acute respiratory failure: Status: Acute Qualifiers: Respiratory failure complication: hypoxia Qualified Code(s): J96.01 - Acute respiratory failure with hypoxia (3) Congestive heart failure: Status: Chronic Qualifiers: Heart failure type: unspecified Heart failure chronicity: acute on chronic Qualified Code(s): I50.9 - Heart failure, unspecified (4) JESUSITA (acute kidney injury): Likely due to hypoperfusion injury from cardiac arrest Status: Acute (5) Transaminitis: Likely shock liver from cardiac arrest. Check hepatitis serology Status: Acute Attestations Medical Necessity Statement*: Anticipate greater than 2 midnight admission for post cardiac arrest care, evaluation of underlying cause, need for IV antibiotics, postcode management Critical Care Time: The high probability of a clinically significant, sudden or life threatening deterioration of the patient's [cardiac, respiratory,renal] system(s) required my full and direct attention, intervention and personal management. The critical care time is as shown. This time is in addition to time spent performing any reported procedures but includes the following: [x] Data and vital sign review and interpretation [x] Patient assessment, examination and intervention [x] Documentation [x] Medication orders and management Critical Care Time (min): 50 Coding Level of Care Code Acute Physician Credentialing Specialist for Yari Purdy Diagnoses Cardiac arrest I46.9 Acute respiratory failure J96.01 Respiratory failure complication: hypoxia Congestive heart failure I50.9 Heart failure type: unspecified Heart failure chronicity: acute on chronic JESUSITA (acute kidney injury) N17.9 Transaminitis R74.01
[2021-09-10] MEDS: FUROsemide 10 mg/mL SDV 4mL 40 MG IVP (02:33)
[2021-09-10 02:37] LABS: Acetaminophen < 5.0 ug/mL (10-30); Alcohol Level < 10 mg/dL (0-10); Salicylate < 0.3 mg/dL (3-10)
[2021-09-10 02:38] LABS: Troponin 5 2HR 360.7 ng/L (0-10); Troponin 5 2HR Delta 192.7 ABS# (0-10)
--- NOTE | 2021-09-10 02:41 | PC.PHAR ---
Pharmacokinetic dosing service Date: 09/10/21 Time: 244 Objective: Patient: Coby Pierce Floor: ED Age: 60 yo Serum creatinine: 1.7 mg/dL Height: 63.0 Inches Weight (kg): 113.398 Diagnosis: Relevant medical/social history: Cultures and sensitivities: Other labs: Assessment: IBW (kg): 52.40 Dosing wt(kg): 76.8 Estimated Creatinine clearance (ml/min): 29.8 CRCL method: Cockcroft and Gault using ibw(default). Drug selected: Vancomycin Loading dose (mg): 0 Vd (liters): 69.1 (factor used: 0.9 L/kg) Bill (hr-1): 0.029 Half life (hrs): 23.90 Recommended dose: 1500 mg Interval: 36 hrs Infusion time (hrs): 1.5 Predicted peak (mcg/mL): 32.8 Predicted trough (mcg/mL): 12.06 Adjusted body weight was selected for vancomycin dosing. To switch back, select the total body weight option above. Renal function is stable [ ] /unstable [ ] Recommendations: Give Vancomycin 1500 mg q 36 hrs with an expected Cpeak of 32.8 mcg/ml and an expected Ctrough of 12.06 mcg/ml Renal dosing of other antibiotics (review renal dosing of other medications and list guidelines here): Thank you for the consult, will continue to follow. Signature: Kandis Morales [facility]
[2021-09-10 02:54] LABS: Influenza A by IFA Negative (Negative); Influenza B by IFA Negative (Negative)
[2021-09-10] MEDS: acetaminophen 325 mg Tablet 650 MG PO ×2 (02:54→05:54)
[2021-09-10 03:17] LABS: ABG PCO2 48.4 mmHg (35-45); Arterial Blood Gas Hematocrit 44.9 % (37-47); Base Excess ABG -13.7 mmol/L (-2.0-2.0); Blood Gas Allen Test Pos; Blood Gas Sample Site Radial, right; Blood Gas Sample Type Arterial; HCO3 ABG 15.6 mmol/L (22-26); Oxygen Device VENT; PO2 ABG 41.2 mmHg (80.0-100.0)
[2021-09-10 03:20] LABS: Blood Gas Tidal Volume 0.42
[2021-09-10] MEDS: vancomycin 1,500 MG/300 ML PIGGYBACK 200 MG IV (03:22)
[2021-09-10] MEDS: iohexol 350 mg/mL 100 mL Btl IV (04:08)
[2021-09-10] MEDS: piperacillin-tazobactam 3.375 GM in sodium chloride 0.9% (plus) 50 ML IV (04:51)
[2021-09-10] MEDS: aspirin 81 mg EC Tablet PO (04:55)
--- NOTE | 2021-09-10 05:10 | CTR_ITS ---
PROCEDURE INFORMATION: Exam: CT Abdomen And Pelvis Without Contrast Exam date and time: 09/10/2021 5:10 AM Age: 60 years old Clinical indication: Abnormal findings; Abnormal radiologic finding of the abdomen; Radiologic exam and body structure: CT chest; Additional info: Acute cholecytsitis, liver mass noted on CT chest TECHNIQUE: Imaging protocol: Computed tomography of the abdomen and pelvis without contrast. Radiation optimization: All CT scans at this facility use at least one of these dose optimization techniques: automated exposure control; mA and/or kV adjustment per patient size (includes targeted exams where dose is matched to clinical indication); or iterative reconstruction. COMPARISON: CT Abdomen/Pelvis Renal [id number] 10/26/2020 2:16 PM RADIATION DOSE METRICS: Total DLP (mGy-cm): 1308.73 FINDINGS: Tubes, catheters and devices: Feeding tube is in satisfactory position. Lungs: There is a right lower lobe consolidation and scattered patchy airspace opacities throughout both lungs, consistent with multifocal pneumonia. Liver: Multiple cysts are again seen scattered throughout the liver, unchanged. The liver is otherwise unremarkable. Gallbladder and bile ducts: There is gallbladder wall thickening with haziness of the surrounding fat, concerning for acute cholecystitis. No radiopaque stone identified. No intra or extrahepatic biliary ductal dilatation seen. Pancreas: Normal. No ductal dilation. Spleen: Normal. No splenomegaly. Adrenal glands: Normal. No mass. Kidneys and ureters: Normal. No hydronephrosis. Stomach and bowel: Unremarkable. No obstruction. No mucosal thickening. Appendix: No evidence of appendicitis. Intraperitoneal space: Unremarkable. No free air. No significant fluid collection. Vasculature: Unremarkable. No abdominal aortic aneurysm. Lymph nodes: Unremarkable. No enlarged lymph nodes. Urinary bladder: The urinary bladder is decompressed with a Raymond catheter in place. Reproductive: Unremarkable as visualized. Bones/joints: Unremarkable. No acute fracture. Soft tissues: Unremarkable. CT/CT abdomen pelvis wo con [id number] IMPRESSION: 1. Multifocal pneumonia. 2. Inflammatory changes of the gallbladder, concerning for acute cholecystitis. Clinical correlation and further evaluation with abdominal ultrasound is recommended. 3. Stable hepatic cysts. Radiation Dose CTDIVOL = (mGy): DLP = 1308.73 (mGy-cm)
[2021-09-10 06:15] LABS: Blood Gas Allen Test Pos; Blood Gas Sample Type Arterial; Blood Gas Tidal Volume 0.43
--- NOTE | 2021-09-10 06:43 | PC.NURSE ---
Patient arrived to ICU at approx 0550. Patient was noted to be dusky, cyanotic. Patient GSC 3, with no gag and no corneal reflex; pupils fixed and dilated 5+. RN unable to get O2 stats, BP noted to be hypotensive with systolic BP in 70's with levophed and epi gtt maxed per protocol; heart rate noted to be NSR in the 90's and patient was febrile at 103F. Dr. Hernández notifed, received orders for vasopressin,and [facility] for cooling. Vasopressin gtt started, and BP noted to increase to SBP 90's, at this time still unable to get O2 sats with heart rate remaining NSR 90's. At approx 0620 RT to bedside for ABG. At approx 0640 dayshift RN to bedside for report. Upon given report, BP was unable to cycle, and heart rate noted to drop. Patient then went into asystole, code called and compression started. Refer to code sheet for more information.
[2021-09-10 06:55] LABS: ABG PCO2 42.7 mmHg (35-45); ABG PH Result 7.42 (7.35-7.45); Arterial Blood Gas Hematocrit 45.6 % (37-47); Base Excess ABG 2.6 mmol/L (-2.0-2.0); HCO3 ABG 27.6 mmol/L (22-26); PO2 ABG 90.9 mmHg (80.0-100.0)
[2021-09-10 06:56] LABS: Blood Gas Sample Site Radial, right; Oxygen Device NC
--- NOTE | 2021-09-10 07:00 | PC.NURSE ---
board of education secretary attempted to call due to patient condition, currently code in progress. No answer. message left.
[2021-09-10 07:19] LABS: Albumin Level 2.7 g/dL (3.5-5.2); Alkaline Phosphatase 70 IU/L (35-105); Anion Gap 25.1 (5-19); Blood Urea Nitrogen 13 mg/dL (6-20); Calcium 7.2 mg/dL (8.5-10.5); Carbon Dioxide 17 mmol/L (22-29); Chloride 102 mmol/L (98-107); Globulin 2.4 g/dL (1.3-4.6); Glomerular Filtration Rate 20.7 mL/min (90-130); Glucose 154 mg/dL (65-115); Osmolality Calculated 293 mOsm/kg (285-295); Potassium 4.1 mmol/L (3.5-5.1); Sodium 140 mmol/L (136-145); Total Protein 5.1 g/dL (6.6-8.7)
[2021-09-10 07:31] LABS: Alanine Aminotransferase 1177 U/L (0-33)
[2021-09-10 07:40] LABS: Troponin 5 6HR 526.4 ng/L (0-10)
[2021-09-10 07:41] LABS: Aspartate Amino Transferase 2623 U/L (0-32); Troponin 5 6HR Delta 358.4 ng/L (0-12)
--- NOTE | 2021-09-10 09:30 | PC.CHAP ---
Pastoral Care Encounter/Spiritual Assessment Type of Contact [] Declined chocolate packer visit [] Patient/Family/Request visit [] Outpatient visit [] Follow-up visit [] Physician referral [] Code/Alert [x] Routine visit [] Staff referral [] Actively dying [] Patient sleeping [] Family support [] [] Out of room [] Palliative care [] [] Receiving care in room [] Pre-surgical visit [] Trauma [] Long length of stay [x] ICU visit [x] Other: patient Relational/Emotional Strength [] Patient feels connected with others/family/visitors/staff [] Distress [] Loneliness/isolation [] Abandonment Spirituality of Patient [] Person of Vanesa [] Attends Quaker of their Vanesa [] Believes in Prayer [] Reads Bible or Druze materials [] There are Spiritual issues to be addressed Patient Account Specialist Interventions [x] Prayer [] Active listening [] Non-anxious presence [] Spiritual/emotional support [] Crisis/trauma care [] Spiritual counseling [] Bereavement support [] Provided bereavement packet [] Provided Bible/devotional materials [] Provided toy/stuffed animal, coloring book to patient or family member [] Provided Communion [] Anointing/Doon [] Salvation [x] Completed spiritual assessment [] Other: Impact on Illness or Injury [] Angry [] Fearful [] Anxious [] Often cries [] Exhaustion [] Unable to work [] Unable to attend amish [] Unable to walk/stand [] Unable to read [] Unable to drive [] Unable to eat/drink [] Unable to sleep [] Unable to be with family [] Patient intubated [] Other: Summary Time spent with patient
--- NOTE | 2021-09-10 17:46 | PC.RESP ---
Smoking Cessation and Pulmonary Rehab information sent to patient.
[2021-09-10 20:51] LABS: ABG PH Result 7.12 (7.35-7.45)
--- NOTE | 2021-09-10 22:05 | P.DES_ITS ---
Discharge Providers DDS Date of Admission: 09/10/21 04:45 Date Summary Completed: 09/10/21 Attending Provider at Admission: Barbie Hernández MD Time of : 07:08 Attending Provider at Discharge: Eddie Lyles Primary Care Provider: Sravani Paul Diagnoses Hospital Diagnoses (1) Cardiac arrest: (2) Acute respiratory failure: Qualifiers: Respiratory failure complication: hypoxia Qualified Code(s): J96.01 - Acute respiratory failure with hypoxia (3) Congestive heart failure: Problem details: grade 1 diastolic dysfunction, LVEF 60% Qualifiers: Heart failure type: unspecified Heart failure chronicity: acute on chronic Qualified Code(s): I50.9 - Heart failure, unspecified (4) JESUSITA (acute kidney injury): (5) Transaminitis: Reason for Visit Reason for Visit: unresponsive Brief History: History per chart review and discussion with ER physician. Family's phone going to [employer]. Coby Pierce is a 60 year old female past medical history of congestive heart failure, hypertension, Prinzmetal angina, GERD, diabetic neuropathy , breast ca brought to the ER today and unresponsive state. Reportedly patient had been taking multiple doses of oxycodone at home over the past 2 days, had been lethargic, had been in bed, uncertain what her mentation was at this time. EMS was called today as she was poorly responsive, when EMS arrived she was noted to have labored breathing, heart rate of 110, reportedly sinus rhythm and normotensive. She was saturating in the 80s on room air, she was unable to be intubated due to difficult airway and had a LMA in place for transfer to the ER. Shortly upon ER arrival, patient became pulseless, asystole on monitor, CPR was started immediately, she had 4 rounds of chest compressions and epinephrine pushes. She had already received 2 mg of Narcan by EMS and received additional Narcan after arrival to the hospital without any change in clinical status. She was intubated in the ER. At the time of my assessment patient is mechanically ventilated, saturating 93%, 100% FiO2. Her pupils are fixed and dilated, there is no corneal reflex, she is currently not on any sedation, does not respond to either verbal or painful stimulus. Blood pressure is 110/68 on 2 pressors-Levophed at 6 mics, epinephrine at 0.4. Labs notable for JESUSITA, creatinine 1.7, elevated troponin greater than 100, elevated CK~5000, transaminitis with deranged AST and ALT which could all be consistent with the postcode state. ABG shows respiratory acidosis. Review of her past cardiology notes showed that patient had been having on and off chest pain, dating back at least a year, stress test had been ordered on multiple occasions but not completed. 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 CTA chest negative for PE, RLL dense consolidation, multifocal pneumonia, possible acute cholecytsitis noted on CT chest. Empirically treated with Zosyn, vancomycin. Dedicated abdominal imaging ordered. Added Doxycycline for atypical coverage (Qtc 508, avoiding Levaquin or azithro). Ct head without acute bleed, loss of cole white differentiation which may be consistent with anoxic brain injury. Delta trop >190, started heparin infusion. No change in mentation since last seen. Summary Date and Time of Date of : 09/10/21 Time of : 07:08 Summary Summary: Persistently hypotensive despite maximum doses of Levophed and epi. Transiently improving blood pressure after addition of vasopressin. Around 0640 additional CODE BLUE called after blood pressure unable to be obtained, with noted asystole arrest. Could not be resuscitated with time of pronounced at 0708. Difficulties with reaching family. Eventually life partner reached, but wanted to defer to relatives with regards to arrangements. Discharge Plan Discharge Patient Disposition: Condition: Critical Probable Cause of Probable cause of : Cardiac arrest DS Attestations Time Spent in /Discharge Care*: greater than 30 min Quality - AMI: AMI present?: Yes Quality - Stroke: CVA present?: No Quality - VTE: VTE present?: No Coding Level of Care Code Acute Panel Coverer for [facility] Diagnoses Cardiac arrest I46.9 Acute respiratory failure J96.01 Respiratory failure complication: hypoxia Congestive heart failure I50.9 Heart failure type: unspecified Heart failure chronicity: acute on chronic JESUSITA (acute kidney injury) N17.9 Transaminitis R74.01
[2021-09-11 08:37] LABS: Coronavirus Test Green County Not Detected
[2021-09-13 08:57] LABS: Hepatitis A Antibody IgM Non-Reactive (Nonreactive); Hepatitis B Surface AB 3.5 (11.5-1000)
[2021-09-13 08:58] LABS: Hepatitis B Core AB, Total Non-Reactive (Nonreactive); Hepatitis B Surface Antigen Non-Reactive (Nonreactive); Hepatitis C Virus Antibody Non-Reactive (Nonreactive)
[2021-09-13 20:59] LABS: Levetiracetam Keppra 13.6 mcg/mL
--- NOTE | 2021-09-27 12:07 | PM.CCN ---
Critical Care Event Note Critical Care Event The high probability of a clinically significant, sudden or life threatening deterioration of the patient's [] system(s) required my full and direct attention, intervention and personal management. The critical care time is as shown. This time is in addition to time spent performing any reported procedures but includes the following: [x] Data and vital sign review and interpretation [x] Patient assessment, examination and intervention [x] Documentation [x] Medication orders and management Critical Care Time Critical Care Time: Code activated: Yes Critical Care Time (min): 15 Additional information about critical care time: Responded to a code in the ICU. On my arrival CPR in progress patient is intubated patient had coded earlier. Patient has prolonged and persistent asystole. ACLS protocols applied for 10 minutes patient given bicarb and multiple doses of epinephrine with no response. Persistent asystole noted. Patient previously had been given treatment for hyperkalemia which was repeated during this code. Asystole persisted despite ACLS protocols other etiologies considered. Patient not responding to treatment resuscitation efforts ceased. Hospitalist notified. 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
== END 2021-09-10 12:24 | disposition expired | DRG 296 ==
LOC: ER 09-10 01:56 → ICU 09-10 04:47
PROVIDERS: Admitting Provider Student in an Organized Health Care Education/Training Program; Emergency Provider Emergency Medicine; PCP Registered Nurse; Visit Provider Internal Medicine
DX: I46.9 Cardiac arrest, cause unspecified (principal); I50.33 Acute on chronic diastolic (congestive) heart failure; J18.9 Pneumonia, unspecified organism; J96.01 Acute respiratory failure with hypoxia; J44.0 Chronic obstructive pulmonary disease with (acute) lower respiratory infection; K81.0 Acute cholecystitis; N17.9 Acute kidney failure, unspecified; I11.0 Hypertensive heart disease with heart failure; Z86.73 Personal history of transient ischemic attack (TIA), and cerebral infarction without residual deficits; K58.9 Irritable bowel syndrome, unspecified; Z87.442 Personal history of urinary calculi; Z90.12 Acquired absence of left breast and nipple; F17.210 Nicotine dependence, cigarettes, uncomplicated; K21.9 Gastro-esophageal reflux disease without esophagitis; E11.42 Type 2 diabetes mellitus with diabetic polyneuropathy; Z85.3 Personal history of malignant neoplasm of breast; I95.9 Hypotension, unspecified
CPT/HCPCS: 36415; 36416; 36600; 70450; 71045; 71275; 74176; 80053; 80177; 80306; 80307; 81001; 82550; 82803; 82962; 83605; 83880; 84484; 85025; 85610; 85730; 86403; 86705; 86706; 86709; 86803; 87040; 87070; 87077; 87205; 87340; 87426; 87449; 87635; 87641; 87804; 93005; 93306; 94002; 94640; 94799; 96365; 96366; 96367; 96375; 99291; 99292; J0171; J1940; J2543; J3370; J3490; J7030; J7050; Q9967